=== PATIENT | female | born 1995 | race Caucasian/White ===

== ENCOUNTER 2017-10-09 22:47 | Emergency (ER) | payer MEDICAID ==
[2017-10-09] MEDS ORDERED: Lidocaine 1% 10 ML MDV INJECT ONE (23:23)
--- NOTE | 2017-10-09 23:23 | EDM.PDOC ---
ED HPI GENERAL MEDICAL PROBLEM - General Chief Complaint: Laceration Stated Complaint: CUT ON LIP Time Seen by Provider: 10/09/17 23:12 Source of Information: Reports: Patient, Family (boyfriend) History Limitations: Reports: Altered Mental Status, Intoxication (Appears to be under the influence of drugs or alcohol.) - History of Present Illness INITIAL COMMENTS - FREE TEXT/NARRATIVE: 22-year-old female presents the ED stating that she tripped and fell and struck the corner of a coffee table. This is resulted in 2 lacerations to her right face involving the Ellis border of her right lower lip and lateral chin area. She's not sure when she had her last tetanus toxoid. S complains of a sore jaw but no malocclusion. No dental injuries. No neck pain. he denies any loss of consciousness. She appears to be under the influence of drugs or alcohol. Lacerations are deep enough to require sutures. Onset: Today Onset Date: 10/09/17 Onset Time: 22:00 Duration: Minutes: Location: Reports: Face (Right lower chin and right lower lip.) Quality: Reports: Ache Severity: Moderate Improves with: Reports: None Worsens with: Reports: Other Context: Denies: Activity, Exercise, Lifting, Sick Contact, Trauma, Other Associated Symptoms: Reports: Malaise. 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 [No Known Home Meds] 10/09/17 [History] Past Medical History Neurological History: Reports: Migraines Social & Family History - Tobacco Use Smoking Status *Q: Light Tobacco Smoker Years of Tobacco use: 2 Packs/Tins Daily: 1 - Caffeine Use Caffeine Use: Reports: Coffee - Recreational Drug Use Recreational Drug Use: No ED ROS GENERAL - Review of Systems Review Of Systems: See Below Constitutional: Reports: No Symptoms HEENT: Reports: No Symptoms Respiratory: Reports: No Symptoms Cardiovascular: Reports: No Symptoms Endocrine: Reports: No Symptoms GI/Abdominal: Reports: No Symptoms : Reports: No Symptoms Musculoskeletal: Reports: No Symptoms Skin: Reports: No Symptoms Neurological: Reports: No Symptoms Psychiatric: Reports: No Symptoms Hematologic/Lymphatic: Reports: No Symptoms Immunologic: Reports: No Symptoms ED EXAM, SKIN/RASH Exam: See Below Exam Limited By: Altered Mental Status (Appears to be intoxicated by drugs or alcohol.) General Appearance: No Apparent Distress, Lethargic Eye Exam: Bilateral Eye: Normal Inspection Nose: Normal Inspection Throat/Mouth: Normal Inspection, Normal Lips, Normal Teeth, Normal Oropharynx, Other (No dental injuries no bite polo to her tongue.) Head: Other (Lacerations to her right lower lip involving the inner lower lip as well. There are 2 lacerations to her right face one involving the Ana border of her right lip which is about 2 cm in length and a 1 cm laceration inferior to this over the lateral chin.) Neck: Normal Inspection, Supple, Non-Tender ( Require suture repair.), Full Range of Motion. No: Lymphadenopathy (L), Lymphadenopathy (R) Respiratory/Chest: No Respiratory Distress, Lungs Clear, Normal Breath Sounds, No Accessory Muscle Use Cardiovascular: Normal Peripheral Pulses, Regular Rate, Rhythm, No Edema, No Gallop, No Murmur Extremities: Normal Inspection, Normal Range of Motion, Non-Tender, No Pedal Edema, Normal Capillary Refill Neurological: Other (Lethargic. She does answer appropriately but she appears to be intoxicated.) Skin: Warm, Dry, Intact, Normal Color Location, Skin: Face (Lacerations to her right lower lip involving the Ellis border and base 1 cm laceration inferior to this involving her right lateral chin below the lip.) ED SKIN PROCEDURES - Laceration/Wound Repair Right Anterior Face Lac/Wound length In cm: 2.0 (Laceration right lower lip involving the Ellis border 2 cm in length.) Appearance: Subcutaneous, Clean Distal NVT: Neuro & Vascular Intact Anesthetic Type: Local Local Anesthesia - Lidocaine (Xylocaine): 1% Plain Local Anesthetic Volume: 1cc Skin Prep: Saline # of Sutures: 5 Suture Type: Interrupted, Simple Suture Size: other (5-0) Course - Vital Signs Last Recorded V/S: Last Vital Signs Temp 36.5 C 08/17/18 22:54 Pulse 74 10/09/17 22:54 Resp 18 10/09/17 22:54 BP 112/86 10/09/17 22:54 Pulse Ox 98 10/09/17 22:54 - Orders/Labs/Meds Orders: Active Orders 24 hr Category Date Time Status Vaccines to be Administered [RC] PER UNIT ROUTINE Care 10/09/17 23:24 Active Meds: Medications Discontinued Medications Generic Name Dose Route Start Last Admin Trade Name Javier PRN Reason Stop Dose Admin Diphtheria/Tetanus/Acell Pertussis 0.5 ml 10/09/17 23:24 10/09/17 23:47 Adacel IM 10/09/17 23:25 0.5 ml .ONCE ONE Administration Lidocaine HCl 10 ml 10/09/17 23:23 10/09/17 23:45 Xylocaine 1% INJECT 10/09/17 23:24 10 ml ONETIME ONE Administration - Radiology Interpretation Free Text/Narrative:: 22-year-old female who appears to be intoxicated presents to the ED indicating that she tripped and fell and struck the corner of a coffee table. This is resulted and contusions lacerations to her right carlene-face involving the Ellis border of her right lower lip and laceration to the inner mucosal lip that will not require suture. The outer laceration involving the vermilion border will require suture repair is partially 2 cm in length. There is a second 1 cm laceration inferior and lateral to the initial wound involving the lateral chin. Both wounds will require suture repair. - Re-Assessments/Exams Free Text/Narrative Re-Assessment/Exam: 10/10/17 00:02 Tdap has been updated. Lacerations were anesthetized with 1% lidocaine and sutured under local anesthetic. The superior laceration which involves the vermilion border of her lip and is 2 cm in length was sutured using 5-0 Vicryl suture. These may followed unknown but may be removed in 7 days time otherwise. The inferior chin laceration which is only 1 cm were sutured 2 with 5-0 nylon. The wounds daily with soap and water and apply topical antibiotic such as bacitracin or Polysporin. Departure - Departure Time of Disposition: 00:01 Disposition: Home, Self-Care 01 Condition: Fair Clinical Impression: Complex laceration of face Qualifiers: Encounter type: initial encounter Qualified Code(s): S01.91XA - Laceration without foreign body of unspecified part of head, initial encounter - Discharge Information *PRESCRIPTION DRUG MONITORING PROGRAM REVIEWED*: Not Applicable *COPY OF PRESCRIPTION DRUG MONITORING REPORT IN PATIENT SAMAN: Not Applicable Instructions: Laceration Care, Adult, [id number] Referrals: PCP,None [Primary Care Provider] - Forms: ED Department Discharge Additional Instructions: Evaluation the emergent tonight in regards to a fall with resultant blunt force trauma to your right lower lip. This is resulted in 2 lacerations to your right face one involves the Ellis border of your right lower lip the second one is on the lateral chin. There is a laceration on the inner aspect of your right lip that will not require suture repair. No apparent dental or tongue injury. That you likely jammed up her right temporomandibular joint from the fall. This will cause jaw pain for the next 7-10 days. Try and keep her diet fairly soft without any guarding or anything this hard to chew for the next 10 days. Motrin 600 mg every 6 hours needed for pain relief. Wounds were cleansed and sutured under local anesthetic. Treatment is to daily cleanse the wounds with soap and water. Showering is okay. Then apply topical antibiotic such as bacitracin or Polysporin to the wounds once daily usually at bedtime. Sutures will need to be removed in 7 days time. Please make a follow-up appointment with her personal physician in 7 days time. - My Orders Last 24 Hours: My Active Orders 10/09/17 23:24 Vaccines to be Administered [RC] PER UNIT ROUTINE - Assessment/Plan Last 24 Hours: My Active Orders 10/09/17 23:24 Vaccines to be Administered [RC] PER UNIT ROUTINE ED LACERATION PROCEDURES - Laceration/Wound Repair Right Anterior Face Lac/wound length in cm: 1.0 (Right superior chin) Appearance: Subcutaneous, Clean Distal NVT: Neuro & Vascular Intact Anesthetic Type: Local Local Anesthetic Volume: 1cc Skin Prep: Saline Closed with: Sutures Suture Size: other (5-0) # of Sutures: 2 Suture Type: Nylon, Interrupted, Simple
[2017-10-09] MEDS ORDERED: Diphtheria,Pertussis(Acell),Tetanus Vaccine 0.5 ML SDV IM ONE (23:24)
[2017-10-10] MEDS ORDERED: Acetaminophen/oxyCODONE 325-5 MG Tab PO ONE (00:07)
[2017-10-10] MEDS ORDERED: Ibuprofen 600 MG Tab PO ONE ×2 (00:07)
[2017-10-10] MEDS ORDERED: Prochlorperazine 5 MG Tab PO ONE (00:07)
== END 2017-10-10 00:21 | disposition home or self-care (01) ==
LOC: JD.ED 22:47
DX: S01.511A Laceration without foreign body of lip, initial encounter (principal); S01.81XA Laceration without foreign body of other part of head, initial encounter; F17.210 Nicotine dependence, cigarettes, uncomplicated; Z23 Encounter for immunization; W01.198A Fall on same level from slipping, tripping and stumbling with subsequent striking against other object, initial encounter
CPT/HCPCS: 12013; 90471; 90715; 99283; A9270; Q0164; 12011

== ENCOUNTER 2017-10-20 23:11 | Emergency (ER) | payer MEDICAID ==
[2017-10-20] MEDS ORDERED: Sodium Chloride 0.9% 10 ML Syringe FLUSH PRN (23:48)
[2017-10-20] MEDS ORDERED: Sodium Chloride 0.9% 1,000 ML IV ONE (23:49)
[2017-10-20] MEDS ORDERED: Ketorolac 60 MG/2 ML SDV IVPUSH ONE (23:50)
[2017-10-21 02:05] LABS: N. GONORRHOEAE BY PCR NOT DETECTED
[2017-10-21 02:11] LABS: C. TRACHOMATIS BY PCR DETECTED
[2017-10-21] MEDS ORDERED: Ondansetron 4 MG/2 ML SDV IVPUSH ONE (02:43)
[2017-10-21] MEDS ORDERED: Azithromycin 250 MG Tab PO ONE (02:44)
[2017-10-21] MEDS ORDERED: cefTRIAXone 1,000 MG VIAL IM ONE (02:44)
[2017-10-21] MEDS ORDERED: cefTRIAXone 1 GM Vial IM ONE (02:46)
--- NOTE | 2017-10-21 02:49 | EDM.PDOC ---
ED HPI GENERAL MEDICAL PROBLEM - General Chief Complaint: Flank Pain Stated Complaint: RIGHT FLANK PAIN Time Seen by Provider: 10/20/17 23:42 Source of Information: Reports: Patient History Limitations: Reports: No Limitations Right Flank Pain Score (Numeric/FACES): 8 - Related Data Allergies Allergy/AdvReac Type Severity Reaction Status Date / Time No Known Allergies Allergy Verified 10/20/17 23:18 Home Meds: Home Meds . [No Known Home Meds] 10/09/17 [History] Past Medical History - Past Health History Medical/Surgical History: Denies Medical/Surgical History Neurological History: Reports: Migraines Social & Family History - Tobacco Use Smoking Status *Q: Current Every Day Smoker Years of Tobacco use: 2 Packs/Tins Daily: 0.1 - Caffeine Use Caffeine Use: Reports: Coffee - Recreational Drug Use Recreational Drug Use: No ED ROS GENERAL - Review of Systems Review Of Systems: See Below ED EXAM, RENAL/ - Physical Exam Exam: See Below Course - Vital Signs Last Recorded V/S: Last Vital Signs Temp 37.3 C 10/20/17 23:19 Pulse 78 10/20/17 23:19 Resp 20 10/20/17 23:19 BP 135/111 H 10/20/17 23:19 Pulse Ox 99 10/20/17 23:19 - Orders/Labs/Meds Orders: Active Orders 24 hr Category Date Time Status Peripheral IV Care [RC] . DIRECTED Care 10/20/17 23:49 Active Abdomen Pelvis wo Cont [CT] Stat Exams 10/21/17 00:47 Taken HCG QUALITATIVE,URINE [URCHEM] Stat Lab 10/21/17 00:07 Ordered UA W/MICROSCOPIC [URIN] Stat Lab 10/21/17 00:07 Ordered Sodium Chloride 0.9% [Saline Flush] Med 10/20/17 23:48 Active 10 ml FLUSH ASDIRECTED PRN Peripheral IV Insertion Adult [OM.PC] Routine Oth 10/20/17 23:48 Ordered Medication Orders Sodium Chloride (Saline Flush) 10 ml FLUSH ASDIRECTED PRN PRN Reason: Keep Vein Open Last Admin: 10/21/17 00:03 Dose: 10 ml Labs: Laboratory Tests 10/20/17 10/20/17 10/21/17 Range/Units 23:56 23:56 00:07 WBC 13.35 H (3.98-10.04) K/mm3 RBC 4.98 (3.98-5.22) M/mm3 Hgb 14.4 (11.2-15.7) gm/L Hct 43.4 (34.1-44.9) % MCV 87.1 (79.4-94.8) fl MCH 28.9 (25.6-32.2) pg MCHC 33.2 (32.2-35.5) g/dl RDW Std Deviation 41.9 (36.4-46.3) fL Plt Count 338 (182-369) K/mm3 MPV 9.5 (9.4-12.3) fl Neut % (Auto) 58.5 (34.0-71.1) % Lymph % (Auto) 29.4 (19.3-51.7) % [place] % (Auto) 8.8 (4.7-12.5) % Eos % (Auto) 2.2 (0.7-5.8) Baso % (Auto) 0.8 (0.1-1.2) % Neut # (Auto) 7.81 H (1.56-6.13) K/mm3 Lymph # (Auto) 3.93 H (1.18-3.74) K/mm3 [place] # (Auto) 1.17 H (0.24-0.36) K/mm3 Eos # (Auto) 0.29 (0.04-0.36) K/mm3 Baso # (Auto) 0.11 H (0.01-0.08) K/mm3 Sodium 141 (136-145) mEq/L Potassium 3.6 (3.5-5.1) mEq/L Chloride 104 (98-107) mEq/L Carbon Dioxide 28 (21-32) mEq/L Anion Gap 12.6 (5-15) BUN 13 (7-18) mg/dL Creatinine 1.0 (0.55-1.02) mg/dL Est Cr Clr Drug Dosing 77.49 mL/min Estimated GFR (MDRD) > 60 (>60) mL/min BUN/Creatinine Ratio 13.0 L (14-18) Glucose 84 (74-106) mg/dL Calcium 9.3 (8.5-10.1) mg/dL Total Bilirubin 0.3 (0.2-1.0) mg/dL AST 11 L (15-37) U/L ALT 15 (14-59) U/L Alkaline Phosphatase 66 (46-116) U/L Total Protein 8.0 (6.4-8.2) g/dl Albumin 3.6 (3.4-5.0) g/dl Globulin 4.4 gm/dL Albumin/Globulin Ratio 0.8 L (1-2) Urine Color Yellow (Yellow) Urine Appearance Clear (Clear) Urine pH 6.5 (5.0-8.0) Ur Specific [place] 1.020 (1.005-1.030) Urine Protein 1+ H (Negative) Urine Glucose (UA) Negative (Negative) Urine Ketones Negative (Negative) Urine Occult Blood 2+ H (Negative) Urine Nitrite Negative (Negative) Urine Bilirubin Negative (Negative) Urine Urobilinogen 0.2 (0.2-1.0) Ur Leukocyte Esterase 2+ H (Negative) Urine RBC 5-10 H (0-5) /hpf Urine WBC 20-30 H (0-5) /hpf Ur Epithelial Cells 0-5 (0-5) /hpf Urine Bacteria Few (FEW) /hpf Urine Mucus Not seen (FEW) /hpf Urine HCG, Qual (NEGATIVE) C trachomatis DNA (PCR) N gonorrhoeae DNA (PCR) 10/21/17 10/21/17 Range/Units 00:07 00:07 WBC (3.98-10.04) K/mm3 RBC (3.98-5.22) M/mm3 Hgb (11.2-15.7) gm/L Hct (34.1-44.9) % MCV (79.4-94.8) fl MCH (25.6-32.2) pg MCHC (32.2-35.5) g/dl RDW Std Deviation (36.4-46.3) fL Plt Count (182-369) K/mm3 MPV (9.4-12.3) fl Neut % (Auto) (34.0-71.1) % Lymph % (Auto) (19.3-51.7) % [place] % (Auto) (4.7-12.5) % Eos % (Auto) (0.7-5.8) Baso % (Auto) (0.1-1.2) % Neut # (Auto) (1.56-6.13) K/mm3 Lymph # (Auto) (1.18-3.74) K/mm3 [place] # (Auto) (0.24-0.36) K/mm3 Eos # (Auto) (0.04-0.36) K/mm3 Baso # (Auto) (0.01-0.08) K/mm3 Sodium (136-145) mEq/L Potassium (3.5-5.1) mEq/L Chloride (98-107) mEq/L Carbon Dioxide (21-32) mEq/L Anion Gap (5-15) BUN (7-18) mg/dL Creatinine (0.55-1.02) mg/dL Est Cr Clr Drug Dosing mL/min Estimated GFR (MDRD) (>60) mL/min BUN/Creatinine Ratio (14-18) Glucose (74-106) mg/dL Calcium (8.5-10.1) mg/dL Total Bilirubin (0.2-1.0) mg/dL AST (15-37) U/L ALT (14-59) U/L Alkaline Phosphatase (46-116) U/L Total Protein (6.4-8.2) g/dl Albumin (3.4-5.0) g/dl Globulin gm/dL Albumin/Globulin Ratio (1-2) Urine Color (Yellow) Urine Appearance (Clear) Urine pH (5.0-8.0) Ur Specific [place] (1.005-1.030) Urine Protein (Negative) Urine Glucose (UA) (Negative) Urine Ketones (Negative) Urine Occult Blood (Negative) Urine Nitrite (Negative) Urine Bilirubin (Negative) Urine Urobilinogen (0.2-1.0) Ur Leukocyte Esterase (Negative) Urine RBC (0-5) /hpf Urine WBC (0-5) /hpf Ur Epithelial Cells (0-5) /hpf Urine Bacteria (FEW) /hpf Urine Mucus (FEW) /hpf Urine HCG, Qual Negative (NEGATIVE) C trachomatis DNA (PCR) Detected H N gonorrhoeae DNA (PCR) Not detected Meds: Medications Generic Name Dose Route Start Last Admin Trade Name Freq PRN Reason Stop Dose Admin Sodium Chloride 10 ml 10/20/17 23:48 10/21/17 00:03 Saline Flush FLUSH 10 ml ASDIRECTED PRN Administration Keep Vein Open Discontinued Medications Generic Name Dose Route Start Last Admin Trade Name Freq PRN Reason Stop Dose Admin Azithromycin 1,000 mg 10/21/17 02:44 Zithromax PO 10/21/17 02:45 ONETIME ONE Ceftriaxone Sodium 1,000 mg 10/21/17 02:44 Rocephin IM 10/21/17 02:45 ONETIME ONE Sodium Chloride 1,000 mls @ 999 mls/hr 10/20/17 23:49 10/21/17 00:01 Normal Saline IV 10/21/17 00:49 999 mls/hr ONETIME ONE Administration Ketorolac Tromethamine 60 mg 10/20/17 23:50 10/21/17 00:01 Toradol IVPUSH 10/20/17 23:51 60 mg ONETIME ONE Administration Ondansetron HCl 4 mg 10/21/17 02:43 Zofran IVPUSH 10/21/17 02:44 ONETIME ONE Departure - Departure Time of Disposition: 02:46 Disposition: Home, Self-Care 01 Condition: Good Clinical Impression: UTI, Urinary tract infectious disease, Chlamydia infection - Discharge Information *PRESCRIPTION DRUG MONITORING PROGRAM REVIEWED*: No *COPY OF PRESCRIPTION DRUG MONITORING REPORT IN PATIENT SAMAN: No Instructions: Antibiotic Medicine, Adult, Urinary Tract Infection, Adult Referrals: PCP,None [Primary Care Provider] - Additional Instructions: Take plenty of fluids. Abstain from intercourse for at least 1 week. You should establish a provider for your long-term health needs. Call the clinic to arrange this. - My Orders Last 24 Hours: My Active Orders 10/20/17 23:48 Sodium Chloride 0.9% [Saline Flush] 10 ml FLUSH ASDIRECTED PRN Peripheral IV Insertion Adult [OM.PC] Routine 10/20/17 23:49 Peripheral IV Care [RC] . DIRECTED 10/21/17 00:07 HCG QUALITATIVE,URINE [URCHEM] Stat UA W/MICROSCOPIC [URIN] Stat 10/21/17 00:47 Abdomen Pelvis wo Cont [CT] Stat - Assessment/Plan Last 24 Hours: My Active Orders 10/20/17 23:48 Sodium Chloride 0.9% [Saline Flush] 10 ml FLUSH ASDIRECTED PRN Peripheral IV Insertion Adult [OM.PC] Routine 10/20/17 23:49 Peripheral IV Care [RC] . DIRECTED 10/21/17 00:07 HCG QUALITATIVE,URINE [URCHEM] Stat UA W/MICROSCOPIC [URIN] Stat 10/21/17 00:47 Abdomen Pelvis wo Cont [CT] Stat
--- NOTE | 2017-10-21 04:10 | ER ---
REASON FOR EMERGENCY ROOM VISIT: Right-sided flank pain. HISTORY OF PRESENT ILLNESS: This 22-year-old woman developed pain in the right mid back region which migrated over to the right flank today. The pain worsened throughout the day. She has not had any irritative voiding symptoms, but last week she had flu-like symptoms with fever, diarrhea, myalgias, and a headache. These resolved prior to the weekend and then her symptoms yesterday began. She has not had any irritative voiding symptoms or hematuria. She does have a history of chlamydia in the past. Last normal menstrual period was approximately 3 weeks ago. She is sexually active and is not using any control. PAST MEDICAL HISTORY: See electronic medical record. She does have a history of migraines. She is a 2, para 0 (2 miscarriages). PAST SURGICAL HISTORY: She has had no previous operations. CURRENT MEDICATIONS: She is on no medications. ALLERGIES: Denies any allergies. FAMILY HISTORY: Maybe significant in that her mother has a history of kidney stones. REVIEW OF SYSTEMS: Pertinent positives and negatives as listed in the HPI. PHYSICAL EXAMINATION: GENERAL: She is curled up and having a moderate amount of pain. VITAL SIGNS: She is afebrile. Blood pressure 135/111, respiratory rate is 20, O2 saturations 99%, pulse rate is 78. HEENT: Head is normocephalic. No conjunctivitis is noted. Oropharynx is normal. NECK: Supple. No adenopathy. CHEST: Clear to auscultation with good air exchange. CARDIAC: Regular rate without murmur. ABDOMEN: She does have some mild tenderness in the right flank area as well as the right lower quadrant region. She even has mild to moderate tenderness to percussion over the right costovertebral angle area. There is no percussion tenderness or rebound. No palpable masses were noted. LABORATORY DATA: Her WBCs are elevated at 13.35 times 10 to the third. She does not have any anemia. Her CMP is normal. Her urinalysis is abnormal with 2+ occult blood, 2+ leukocyte esterase, 5 to 10 rbc's per high-power field, 20 to 30 wbc's per high- power field, and a few bacteria. A probe was done for GC and chlamydia and it was positive for chlamydia. Urine test was negative (HCG qualitative). FURTHER EMERGENCY ROOM COURSE: An IV was started. She was given 1 L of IV normal saline. She received 60 mg of Toradol IV x1. A CT of the abdomen and pelvis was performed, and she did not have any evidence of nephrolithiasis or ureteral calculus. However, she did have a small amount of fluid in the cul-de-sac, possibly indicating a recent ovarian cyst rupture. No other abnormalities were noted. IMPRESSION: 1. Cystitis. 2. Chlamydia. 3. No evidence of renal calculi. PLAN: Her boyfriend accompanied her and seeing as though they are sexually active, I decided to treat her for chlamydia as well as her boyfriend. In addition to this, I am going to go ahead and treat her for a UTI as well. There is no way of knowing whether or not she has chlamydia and a bacterial UTI, so therefore I will treat her for both. Her boyfriend (Tl) was given a prescription for doxycycline 100 mg p.o. b.i.d. x7 days. He was urged to take this to completion. He denies any allergies to medication. The patient was given 1 g of Rocephin IM as well as Zofran 4 mg IV prior to giving her 1000 mg of azithromycin p.o. In addition, she will be given ciprofloxacin 500 mg p.o. b.i.d. x1 week. I am giving her a bit longer dose of Cipro as well as the Rocephin because of her physical findings and there is no way of knowing whether she has a mild pyelonephritis as well. She certainly does not have fevers and so I feel comfortable treating this as an outpatient. The importance of abstaining from sexual intercourse for at least 1 week was emphasized to them, and they understand and agree with this. I emphasized to her the importance of establishing a primary care provider for her routine healthcare needs and for followup purposes. Should she have any problems such as fever or increasing abdominal pain, etc., she should give us a call or return for evaluation. All questions were answered. They understand and agree with this plan. In addition to this, I want to make an addendum. She was also given tramadol 50 mg, dispensed #10, 1 p.o. q.4 hours p.r.n. pain with 0 refills. MMODAL /[id number]
--- NOTE | 2017-10-21 15:05 | CT ---
CT abdomen and pelvis Technique: Multiple axial sections were obtained from above the dome of the diaphragm inferiorly through the pubic symphysis. Intravenous and oral contrast not utilized. Study has been performed as a ureteral stone protocol. Findings: Visualized lung bases show nothing acute. Noncontrast appearance of the liver appears within normal limits. Spleen appears within normal limits. Adrenal glands show no nodule. Kidneys show no abnormal calcifications. No ureteral dilatation or ureteral stone is seen. No bladder calculi are noted. Aorta shows no aneurysmal dilatation. No retroperitoneal adenopathy or mesenteric abnormalities are seen. No pelvic mass or adenopathy is seen. Small amount of free fluid is noted within the cul-de-sac. Appendix is felt to be partially visualized with no findings of appendicitis. No free fluid or inflammatory change is seen. Bone window settings were reviewed which appear within normal limits for the patient's age. Impression: 1. No renal calculi, ureteral dilatation or ureteral stone is seen. 2. Small amount of fluid within the cul-de-sac believed to be physiologic. 3. Nothing acute is appreciated on noncontrast CT study of the abdomen and pelvis performed as a ureteral stone protocol. Diagnostic code #2 Agree with preliminary report issued by [facility] (report finalized on 10/21/17, 3:00 AM Central Time)
== END 2017-10-21 03:08 | disposition home or self-care (01) ==
LOC: JD.ED 23:11
DX: A56.01 Chlamydial cystitis and urethritis (principal); F17.210 Nicotine dependence, cigarettes, uncomplicated
CPT/HCPCS: 36415; 74176; 80053; 81001; 81025; 85025; 87086; 87491; 87591; 96361; 96372; 96374; 96375; 99284; A9270; J0696; J1885; J2405; J7040; J7050; 87088; 87186; 99283

== ENCOUNTER 2019-02-04 11:59 | Emergency (ER) | payer SELFPAY ==
[2019-02-04] MEDS ORDERED: Ondansetron 4 MG/2 ML SDV IVPUSH ONE (12:52)
[2019-02-04] MEDS ORDERED: diphenhydrAMINE 50 MG/ML SDV IVPUSH ONE (12:52)
[2019-02-04] MEDS ORDERED: Lactated Ringers 1,000 ML IV ONE (12:52)
--- NOTE | 2019-02-04 12:52 | EDM.PDOC ---
ED HPI GENERAL MEDICAL PROBLEM - General Chief Complaint: Headache Stated Complaint: LT SIDE NUMBNESS AND MIGRAINE Time Seen by Provider: 02/04/19 12:43 - History of Present Illness INITIAL COMMENTS - FREE TEXT/NARRATIVE: 23-year-old female presents emergency room with a migraine headache. Patient has history of migraine headaches. Sometimes she has numbness on one side or the other sometimes she has vision loss in one eye. It's been a long time since she had the numbness.. She's got significant photophobia and some nausea at this time. This headache started early this morning it started with loss of vision in one eye and has typically how they start. Head Pain Score (Numeric/FACES): 10 - Related Data Allergies Allergy/AdvReac Type Severity Reaction Status Date / Time No Known Allergies Allergy Verified 02/04/19 12:08 Home Meds: Home Meds . [No Known Home Meds] 02/04/19 [History] Past Medical History - Past Health History Medical/Surgical History: Denies Medical/Surgical History Neurological History: Reports: Migraines Psychiatric History: Reports: Anxiety Social & Family History - Tobacco Use Smoking Status *Q: Never Smoker - Caffeine Use Caffeine Use: Reports: Coffee ED ROS GENERAL - Review of Systems Review Of Systems: See Below Constitutional: Reports: No Symptoms HEENT: Reports: Other (Transient vision loss associated with her migraines) Respiratory: Reports: No Symptoms Cardiovascular: Reports: No Symptoms Endocrine: Reports: No Symptoms GI/Abdominal: Reports: No Symptoms - Physical Exam Exam: See Below Exam Limited By: No Limitations General Appearance: Alert, No Apparent Distress Eye Exam: Bilateral Eye: EOMI, Normal Inspection, PERRL Ears: Normal External Exam, Normal Canal, Hearing Grossly Normal, Normal TMs Nose: Normal Inspection, Normal Mucosa, No Blood Throat/Mouth: Normal Inspection, Normal Lips, Normal Teeth, Normal Gums, Normal Oropharynx Head Exam: Atraumatic, Normocephalic Neck: Normal Inspection, Supple, Non-Tender, Full Range of Motion. No: Lymphadenopathy (L), Lymphadenopathy (R) Respiratory/Chest: No Respiratory Distress, Lungs Clear, Normal Breath Sounds Cardiovascular: Normal Peripheral Pulses, Regular Rate, Rhythm, No Edema GI/Abdominal: Normal Bowel Sounds, Soft, Non-Tender Neuro Exam (Abbreviated): Other (Cranial nerves II through XII grossly intact all muscle groups in upper and lower extremities are equal and appropriate bilaterally deep tendon reflexes are equal and appropriate at the patella and and brachial radialis bilaterally cerebellar testing is entirely within normal limits) Course - Vital Signs Last Recorded V/S: Last Vital Signs Temp 36.4 C 02/04/19 12:08 Pulse 82 02/04/19 12:08 Resp 18 02/04/19 12:08 BP 140/92 H 02/04/19 12:08 Pulse Ox 100 02/04/19 12:08 - Orders/Labs/Meds Meds: Medications Discontinued Medications Generic Name Dose Route Start Last Admin Trade Name Javier PRN Reason Stop Dose Admin Diphenhydramine HCl 50 mg 02/04/19 12:52 02/04/19 13:28 Benadryl IVPUSH 02/04/19 12:53 50 mg ONETIME ONE Administration Lactated Ringer's 1,000 mls @ 999 mls/hr 02/04/19 12:52 02/04/19 13:27 Ringers, Lactated IV 02/04/19 13:52 999 mls/hr .BOLUS ONE Administration Ketorolac Tromethamine 15 mg 02/04/19 14:36 02/04/19 14:51 Toradol IVPUSH 02/04/19 14:37 15 mg ONETIME ONE Administration Ondansetron HCl 4 mg 02/04/19 12:52 02/04/19 13:28 Zofran IVPUSH 02/04/19 12:53 4 mg ONETIME ONE Administration - Re-Assessments/Exams Free Text/Narrative Re-Assessment/Exam: 02/04/19 14:36 About 10 minutes after the patient received meds she was having some significant improvement nausea was gone and headache is starting to subside she was doing really well however the pain started to return a little bit on the right frontal area. Will give her 15 mg of Toradol anticipate discharge if this helps her. 02/04/19 15:11 The Toradol really helped out she is doing really good we'll discharge home to rest Departure - Departure Time of Disposition: 14:37 Disposition: Home, Self-Care 01 Clinical Impression: H/O atypical migraine, Atypical migraine - Discharge Information Referrals: PCP,None [Primary Care Provider] - Forms: ED Department Discharge Additional Instructions: Return to the emergency room with any questions problems or worsening symptoms. Go straight home and get some sleep. Follow-up at the Hospital clinic to establish care [phone]. Sepsis Event Note - Evaluation Sepsis Screening Result: No Definite Risk - Focused Exam Vital Signs: Vital Signs Temp Pulse Resp BP Pulse Ox 02/04/19 12:08 36.4 C 82 18 140/92 H 100 Date Exam was Performed: 02/04/19 Time Exam was Performed: 15:11
[2019-02-04] MEDS ORDERED: Ketorolac 15 MG/ML SDV IVPUSH ONE (14:36)
== END 2019-02-04 15:18 | disposition home or self-care (01) ==
LOC: JD.ED 11:59
DX: G43.909 Migraine, unspecified, not intractable, without status migrainosus (principal)
CPT/HCPCS: 96361; 96374; 96375; 99283; J1200; J1885; J2405; J7120

== ENCOUNTER 2019-05-18 19:55 | Emergency (ER) | payer OTHER ==
--- NOTE | 2019-05-18 20:20 | EDM.PDOC ---
ED HPI GENERAL MEDICAL PROBLEM - General Chief Complaint: Respiratory Problem Stated Complaint: 20 WKS /CHECK MOVEMENT/COUGH Time Seen by Provider: 05/18/19 20:19 - History of Present Illness INITIAL COMMENTS - FREE TEXT/NARRATIVE: 24-year-old female is emergency room with a fever cough congestion and sore throat. She is also 20 weeks . Patient was seen here a week ago and she continues to get worse she is running fevers as high as 101. The baby has been active but this is been intermittent the patient cannot recall if the baby has been active today. She is a 3 para 0 2 miscarriages has a cough and a sore throat she is afebrile in the department at this time. She has been fatigued has had some chills has a significant sore throat and cough mostly nonproductive. Headache Pain Score (Numeric/FACES): 3 - Related Data Allergies Allergy/AdvReac Type Severity Reaction Status Date / Time No Known Allergies Allergy Verified 02/04/19 12:08 Home Meds: Home Meds Pnv No.95/Ferrous Fum/Folic AC [ Caplet] 1 tab PO DAILY 05/18/19 [ History] Past Medical History - Past Health History Medical/Surgical History: Denies Medical/Surgical History Neurological History: Reports: Migraines Psychiatric History: Reports: Anxiety, Depression - Past Surgical History Female Surgical History: Reports: D&C Other Female Surgeries/Procedures: 2 miscarriages Social & Family History - Tobacco Use Smoking Status *Q: Current Some Day Smoker Years of Tobacco use: 10 Packs/Tins Daily: 0.2 - Caffeine Use Caffeine Use: Reports: Coffee, Soda, Tea - Recreational Drug Use Recreational Drug Use: No ED ROS GENERAL - Review of Systems Review Of Systems: See Below Constitutional: Reports: Fever, Chills, Fatigue HEENT: Reports: Throat Pain. Denies: Throat Swelling Respiratory: Reports: Cough. Denies: Shortness of Breath, Sputum Cardiovascular: Reports: No Symptoms GI/Abdominal: Reports: No Symptoms : Reports: No Symptoms Musculoskeletal: Reports: No Symptoms Skin: Reports: No Symptoms Neurological: Reports: No Symptoms Psychiatric: Reports: No Symptoms Hematologic/Lymphatic: Reports: No Symptoms Immunologic: Reports: No Symptoms ED EXAM, GENERAL - Physical Exam Exam: See Below Exam Limited By: No Limitations General Appearance: Alert, No Apparent Distress Eye Exam: Bilateral Eye: Normal Inspection Ears: Normal External Exam, Normal Canal, Hearing Grossly Normal, Normal TMs Nose: Normal Inspection, Normal Mucosa, No Blood Throat/Mouth: Normal Lips, Normal Teeth, Normal Gums, Other (Pharyngeal erythema ). No: Perioral Cyanosis Head: Atraumatic, Normocephalic Neck: Normal Inspection, Supple, Non-Tender, Full Range of Motion Respiratory/Chest: No Respiratory Distress, Lungs Clear, Normal Breath Sounds Cardiovascular: Regular Rate, Rhythm, No Edema, No Murmur GI/Abdominal: Normal Bowel Sounds, Soft, Non-Tender (Female) Exam: Fundal Height (Appropriate for gestational age heart tones 147 done by nursing) Back Exam: Normal Inspection. No: CVA Tenderness (L), CVA Tenderness (R) Extremities: Normal Inspection, No Pedal Edema Neurological: Alert, Oriented, Normal Cognition Psychiatric: Normal Affect, Normal Mood Skin Exam: Warm, Dry, Intact Lymphatic: No Adenopathy Course - Vital Signs Last Recorded V/S: Last Vital Signs Temp 37.0 C 05/18/19 20:03 Pulse 76 05/18/19 20:03 Resp 20 05/18/19 20:03 BP 116/86 05/18/19 20:03 Pulse Ox 98 05/18/19 20:03 - Orders/Labs/Meds Orders: Active Orders 24 hr Category Date Time Status CORONAVIRUS COVID-19 PCR PHL [MREF] Stat Lab 05/18/19 21:18 Ordered CULTURE STREP A CONFIRMATION [RM] Stat Lab 05/18/19 20:40 Results STREP SCRN A RAPID W CULT CONF [RM] Stat Lab 05/18/19 20:40 Results Isolation [COMM] Routine Oth 05/18/19 20:32 Ordered - Re-Assessments/Exams Free Text/Narrative Re-Assessment/Exam: 05/18/19 21:22 Screen is negative influenza screen is negative she has been tested for covid 19 will discharge at this time. Departure - Departure Time of Disposition: 21:23 Disposition: Home, Self-Care 01 Clinical Impression: Viral respiratory illness - Discharge Information Referrals: Lit Stratton MD [Primary Care Provider] - Forms: ED Department Discharge Additional Instructions: Return to the emergency room with any questions problems or worsening symptoms. Stay home, you have been tested for Covid 19. It takes a day or 2 for us to get the results of this, occasionally a little longer. Use Tylenol as needed for aches pains and fever. Push lots of fluids. Sepsis Event Note - Evaluation Sepsis Screening Result: No Definite Risk - Focused Exam Vital Signs: Vital Signs Temp Pulse Resp BP Pulse Ox 05/18/19 20:03 37.0 C 76 20 116/86 98 Date Exam was Performed: 05/18/19 Time Exam was Performed: 21:22 - My Orders Last 24 Hours: My Active Orders 05/18/19 20:32 Isolation [COMM] Routine 05/18/19 20:40 CULTURE STREP A CONFIRMATION [RM] Stat STREP SCRN A RAPID W CULT CONF [RM] Stat 05/18/19 21:18 CORONAVIRUS COVID-19 PCR PHL [MREF] Stat - Assessment/Plan Last 24 Hours: My Active Orders 05/18/19 20:32 Isolation [COMM] Routine 05/18/19 20:40 CULTURE STREP A CONFIRMATION [RM] Stat STREP SCRN A RAPID W CULT CONF [RM] Stat 05/18/19 21:18 CORONAVIRUS COVID-19 PCR PHL [MREF] Stat
== END 2019-05-18 21:36 | disposition home or self-care (01) ==
LOC: JD.ED 19:55
DX: O99.512 Diseases of the respiratory system complicating pregnancy, second trimester (principal); J06.9 Acute upper respiratory infection, unspecified; O99.332 Smoking (tobacco) complicating pregnancy, second trimester; F17.210 Nicotine dependence, cigarettes, uncomplicated; Z3A.20 20 weeks gestation of pregnancy
CPT/HCPCS: 87081; 87430; 87804; 99283; U0001

== ENCOUNTER 2019-10-17 09:34 | Inpatient (IN) | payer MEDICAID ==
[2019-10-17] MEDS ORDERED: Ondansetron 4 MG/2 ML SDV IVPUSH PRN (19:34)
[2019-10-17] MEDS ORDERED: Sodium Chloride 0.9% 10 ML Syringe FLUSH PRN (19:34)
[2019-10-17] MEDS ORDERED: Nalbuphine 10 MG/ML Syringe IVPUSH PRN (19:34)
[2019-10-17] MEDS ORDERED: Calcium Carbonate 500 MG Tab.Chew PO PRN (19:34)
[2019-10-17] MEDS ORDERED: Oxytocin/Lactated Ringers 10 UNIT/1,000 ML BAG IV SCH (19:45)
[2019-10-17] MEDS ORDERED: Misoprostol 25 MCG (1/4 of 100 MCG) Tab VAG ONE (20:00)
--- NOTE | 2019-10-17 20:06 | PCM.LDHP ---
L&D History of Present Illness - General Date of Service: 10/17/19 Admit Problem/Dx: Patient Status Order with Admit Dx/Problem 10/17/19 19:35 Patient Status [ADT] Routine Admission Diagnosis/Problem Admission Diagnosis/Problem Source of Information: Patient History Limitations: Reports: No Limitations - Related Data Allergies/Adverse Reactions: Allergies Allergy/AdvReac Type Severity Reaction Status Date / Time No Known Allergies Allergy Verified 10/17/19 19:13 Home Medications: Home Meds Pnv No.95/Ferrous Fum/Folic AC [ Caplet] 1 tab PO DAILY 05/18/19 [History] Ferrous Sulfate [Iron] 325 mg PO 10/17/19 [History] Past Medical History - Past Health History Medical/Surgical History: Denies Medical/Surgical History Neurological History: Reports: Migraines Psychiatric History: Reports: Anxiety, Depression - Past Surgical History Female Surgical History: Reports: D&C Other Female Surgeries/Procedures: 2 miscarriages Social & Family History - Caffeine Use Caffeine Use: Reports: Coffee, Soda, Tea H&P Review of Systems - Review of Systems: Review Of Systems: See Below L&D Exam - Exam Exam: See Below - Vital Signs Vital Signs: Last Vital Signs Temp 36.7 C 10/17/19 19:01 Pulse 84 10/17/19 19:01 Resp 16 10/17/19 19:01 BP 132/81 10/17/19 19:01 Pulse Ox 99 10/17/19 19:01 Weight: 81.556 kg Problem List Initiated/Reviewed/Updated: Yes Orders Last 24hrs: Active Orders 24 hr Category Date Time Status Patient Status [ADT] Routine ADT 10/17/19 19:35 Active Activity as Tolerated [RC] PFP Care 10/17/19 19:35 Active Communication Order [RC] ASDIRECTED Care 10/17/19 19:35 Active Heart Tones [RC] ASDIRECTED Care 10/17/19 19:37 Active Non Stress Test [RC] PER UNIT ROUTINE Care 10/17/19 19:35 Active Notify Provider [RC] PFP Care 10/17/19 19:35 Active Notify Provider [RC] PRN Care 10/17/19 19:35 Active Peripheral IV Care [RC] . DIRECTED Care 10/17/19 19:37 Active Vital Signs [RC] PER UNIT ROUTINE Care 10/17/19 19:35 Active Regular Diet [DIET] Diet 10/17/19 Dinner Active BLOOD BANK HOLD SPECIMEN [BBK] Stat Lab 10/17/19 19:34 Ordered CBC WITH AUTO DIFF [HEME] Stat Lab 10/17/19 19:34 Ordered CORONAVIRUS COVID-19 RAPID [MOLEC] Stat Lab 10/17/19 19:39 Ordered RAPID PLASMA REAGIN,RPR [CHEM] Routine Lab 10/17/19 19:35 Ordered Calcium Carbonate [Tums] Med 10/17/19 19:34 Active 1,000 mg PO Q2H PRN Lactated Ringers [Ringers, Lactated] 1,000 ml Med 10/17/19 19:45 Active IV ASDIRECTED Nalbuphine [Nubain] Med 10/17/19 19:34 Active 10 mg IVPUSH Q2H PRN Ondansetron [Zofran] Med 10/17/19 19:34 Active 4 mg IVPUSH Q4H PRN Oxytocin/Lactated Ringers [Pitocin in LR 10 Units/1,000 Med 10/17/19 19:45 Active ML] 10 unit in 1,000 ml IV .CONTINUOUS Sodium Chloride 0.9% [Saline Flush] Med 10/17/19 19:34 Active 10 ml FLUSH ASDIRECTED PRN miSOPROStoL [Cytotec] Med 10/17/19 20:00 Once 25 mcg VAG ONETIME ONE miSOPROStoL [Cytotec] Med 10/17/19 23:00 Active 50 mcg VAG Q3HR Electronic Heart Tones Ext w TOCO [WOMSER] Oth 10/17/19 19:35 Ordered Routine Electronic Heart Tones Internal [WOMSER] Per Unit Oth 10/17/19 19:35 Ordered Routine Peripheral IV Insertion Adult [OM.PC] Routine Oth 10/17/19 19:35 Ordered Resuscitation Status Routine Resus Stat 10/17/19 19:34 Ordered Medication Orders Calcium Carbonate/Glycine (Tums) 1,000 mg PO Q2H PRN PRN Reason: Indigestion Oxytocin/Lactated Ringer's (Pitocin In Lr 10 Units/1,000 Ml) 10 unit in 1,000 mls @ 500 mls/hr IV .CONTINUOUS TAO Lactated Ringer's (Ringers, Lactated) 1,000 mls @ 100 mls/hr IV ASDIRECTED TAO Misoprostol (Cytotec) 25 mcg VAG ONETIME ONE Stop: 10/17/19 20:01 Misoprostol (Cytotec) 50 mcg VAG Q3HR TAO Stop: 10/18/19 00:01 Nalbuphine HCl (Nubain) 10 mg IVPUSH Q2H PRN PRN Reason: Pain Ondansetron HCl (Zofran) 4 mg IVPUSH Q4H PRN PRN Reason: Nausea/Vomiting Sodium Chloride (Saline Flush) 10 ml FLUSH ASDIRECTED PRN PRN Reason: Keep Vein Open
[2019-10-17] MEDS ORDERED: fentaNYL 100 MCG/2 ML SDV EPIDUR PRN (21:09)
[2019-10-17] MEDS ORDERED: Bupivacaine/fentaNYL/NS 100 ML Bag EPIDUR PRN (21:09)
[2019-10-17] MEDS ORDERED: ePHEDrine 50 MG/ML SDV IVPUSH PRN (21:09)
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
[2019-10-17] MEDS: Misoprostol 25 MCG (1/4 of 100 MCG) Tab VAG SCH (23:47)
[2019-10-18] MEDS ORDERED: Misoprostol 25 MCG (1/4 of 100 MCG) Tab ONE (02:40)
[2019-10-18] MEDS: Misoprostol 25 MCG (1/4 of 100 MCG) Tab VAG SCH (02:43)
[2019-10-18] MEDS ORDERED: Oxytocin/Lactated Ringers 10 UNIT/1,000 ML BAG IV SCH (02:45)
[2019-10-18] MEDS: Lactated Ringers 1,000 ML IV SCH ×4 (04:05→16:07)
[2019-10-18] MEDS ORDERED: ePHEDrine 50 MG/ML SDV IVPUSH PRN (07:29)
[2019-10-18] MEDS ORDERED: fentaNYL 100 MCG/2 ML SDV EPIDUR PRN (07:29)
[2019-10-18] MEDS ORDERED: Ondansetron 4 MG/2 ML SDV IVPUSH PRN (07:29)
[2019-10-18] MEDS ORDERED: Phenylephrine 1 MG in Sodium Chloride 0.9% 10 ML IV SCH (07:30)
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
--- NOTE | 2019-10-18 09:06 | PCM.SN.2 ---
- Free Text/Narrative Note: Evaluation at approximately 0730 hrs. on 10/18/2019 shows patient herman process every 3 minutes. She reports them to be mild. She had 3 doses of Cytotec during the course of the night with first dose at 25 mcg and the following 2 doses 50 mcg each given at 3-hour intervals. Her cervix has thin somewhat to 85% effacement, still is only 1 cm dilated, vertex presentation, soft, mid position. Attempt was made to visualize the cervix and attempt placement of Barton catheter to facilitate cervical ripening with bulb inflation. This was unsuccessful due to the close nature of the cervix. heart tones were reassuring. Patient has significant back pain which is chronic in nature. She does not appear to tolerate pain very well. She is resistant to pain control at this time including Nubain or epidural. Assessment: 40-5/7-week intrauterine , induction of labor going very slowly. Plan: 1. Pitocin to be continued. Will assess the cervix at a later time and see whether placement of catheter is possible. 2. Intermittent monitoring. 3. Pain control per patient desire. She is aware of what is available for her.
[2019-10-18] MEDS ORDERED: Acetaminophen 325 MG Tab PO ONE (13:04)
[2019-10-18] MEDS: Bupivacaine/fentaNYL/NS 100 ML Bag EPIDUR SCH ×2 (13:42→21:47)
[2019-10-18] MEDS: diphenhydrAMINE 50 MG/ML SDV IVPUSH PRN ×2 (16:04→22:24)
[2019-10-18] MEDS ORDERED: Oxytocin/Lactated Ringers 20 UNIT/1,000 ML BAG IV SCH (19:15)
--- NOTE | 2019-10-18 20:43 | PCM.SN.2 ---
- Free Text/Narrative Note: Barton catheter in bulb previously inserted has now fallen out and patient has achieved 4 cm dilation, 90% effacement, -2 station, mid position and soft consistency. Artificial rupture membranes undertaken with resultant clear amniotic fluid. Intrauterine pressure catheter is without problems. Uterine contraction pattern is less than optimal with contractions every 2 to 3 minutes but with peak flow contractions in the 45 to 50 mmHg range. heart tones reassuring. Placed for labor analgesia. Barton catheter placed. SCDs placed Assessment: 1. Slow but definite progress in labor. 2. Epidural has been placed and is working well. Plan: 1. Continue Pitocin induction of labor 2. Monitor contractions closely 3. Epidural placed and working well 4. Barton catheter in place sequential compression stockings on.
[2019-10-18] MEDS: Acetaminophen 325 MG Tab PO PRN (22:24)
[2019-10-19] MEDS ORDERED: Bupivacaine 0.25% 10 ML SDV ONE (04:00)
[2019-10-19] MEDS: Lactated Ringers 1,000 ML IV SCH (04:35)
[2019-10-19] MEDS: Bupivacaine/fentaNYL/NS 100 ML Bag EPIDUR SCH (05:10)
[2019-10-19] MEDS ORDERED: Methylergonovine 0.2 MG/1 ML Amp IM ONE (09:56)
[2019-10-19] MEDS ORDERED: Acetaminophen 325 MG Tab PO PRN (10:57)
[2019-10-19] MEDS ORDERED: Docusate Sodium 100 MG Cap PO PRN (10:57)
[2019-10-19] MEDS: Ibuprofen 600 MG Tab PO PRN ×2 (12:14→17:34)
[2019-10-20] MEDS: Ibuprofen 600 MG Tab PO PRN (06:55)
[2019-10-20] MEDS: Acetaminophen 325 MG Tab PO PRN (06:56)
--- NOTE | 2019-10-20 08:29 | PCM.SN.2 ---
- Free Text/Narrative Note: note: Patient is doing well in the period. Minimal lochia, voiding well, ambulated without problems. Nursing without concerns. Patient is afebrile, vital signs are stable Abdomen is flat, soft, uterus is below the umbilicus and is firm and nontender. Legs are nontender. Assessment: recovery going well. Plan: Routine care. Patient be discharged home within the next 24-48 hours.
--- NOTE | 2019-10-20 12:03 | PCM.DCSUM1 ---
Discharge Summary - Hospital Course Free Text/Narrative:: Sri is a 24-year-old 1 now para 1-0-0-1 white female who was admitted on 10/17/2019 for induction of labor. She underwent Cytotec induction/ripening of the cervix on the evening of the into the a.m. of the . On the she started on Pitocin. This was continued until approximately midday at which time a Barton bulb was placed with 30 cc of liquid placed within the balloon for mechanical dilation of the cervix. This fell out somewhat later in the day. She underwent artificial rupture membranes with resultant clear amniotic fluid. She progressed slowly but steadily to the a.m. of 10/19/2019. At that time specifically over 934 hours on 10/19/2019 she delivered a viable, avilez, female with Apgars of 6 and 8 with a weight of 3646 g (8 pounds 0.1 ounces), length of 21.0 inches in a direct occiput anterior position over an intact perineum. There was nuchal cord x1 which was loose and was reduced over the baby's head at the time of delivery. The baby is placed on mom's abdomen. Nose and mouth were bulb suctioned and the umbilical cord was allowed to pulsate for 2 to 3 minutes. Pitocin was increased to 500 cc/h to facilitate increase in uterine tone and decrease likelihood of bleeding. Umbilical cord blood was obtained. The umbilical cord had 3 vessels present within it. Patient was noted to have no lacerations within the vaginal vault. No suturing was required. The placenta delivered in a Bueno presentation, appeared intact and complete and was discarded per patient desire. Patient had approximately 300 cc blood loss. Patient plans to breast-feed. Condition: Good. patient is done well. She is ambulating well, has minimal lochia. She is nursing without problems. She is desiring discharge home. Diagnosis: Stroke: No - Discharge Data Discharge Date: 10/20/19 Discharge Disposition: Home, Self-Care 01 Condition: Good - Referral to Home Health Primary Care Physician: Lit Stratton MD - Patient Instructions Diet: Regular Diet as Tolerated (Nursing diet with increased calories and calcium as recommended) Activity: As Tolerated (No intercourse or tampons until bleeding resolves) Driving: May Drive Today Showering/Bathing: May Shower Showering/Bathing, Other: May take a bath Notify Provider of: Fever, Increased Pain, Swelling and Redness, Nausea and/or Vomiting - Discharge Plan Home Medications: Home Meds Pnv No.95/Ferrous Fum/Folic AC [ Caplet] 1 tab PO DAILY 05/18/19 [History] Ferrous Sulfate [Iron] 325 mg PO 10/17/19 [History] Acetaminophen [Tylenol] 650 mg PO Q4H PRN tablet 10/20/19 [Rx] Ibuprofen [Motrin] 600 mg PO Q4H PRN tablet 10/20/19 [Rx] Patient Handouts: Care After Vaginal Delivery, Eating Plan for Women, Steps to Quit Smoking Referrals: Lit Stratton MD [Primary Care Provider] - (Return to clinicDr. Stratton2 weeks.) - Discharge Summary/Plan Comment DC Time >30 min.: No Discharge Summary/Plan Comment: Discharge instructions: 1. Discharge home 2. Diet, activity and follow-up discussed with patient. Recommend nursing diet with increased calories and calcium. 3. Precautions given concern increased pain, bleeding, temperature, signs/symptoms of DVT/PE. 4. Medications per home medication was printed, discussed with and given to the patient. 5. Return to clinic-Dr. Stratton[facility] in 2 weeks. Diagnosis: Term -delivered Condition: Good - Patient Data Vitals - Most Recent: Last Vital Signs Temp 36.4 C 10/19/19 22:45 Pulse 72 10/20/19 10:51 Resp 16 10/20/19 10:51 BP 106/62 10/20/19 10:51 Pulse Ox 95 10/20/19 10:51 Weight - Most Recent: 81.556 kg I&O - Last 24 hours: Intake & Output 10/19/19 10/20/19 10/20/19 22:59 06:59 14:59 Intake Total 300 Balance 300 Med Orders - Current: Current Medications Acetaminophen (Tylenol) 650 mg PO Q4H PRN PRN Reason: mild pain or fever Docusate Sodium (Colace) 100 mg PO BID PRN PRN Reason: Constipation Ibuprofen (Motrin) 600 mg PO Q4H PRN PRN Reason: Mild pain or fever Last Admin: 10/20/19 06:55 Dose: 600 mg Documented by: Discontinued Medications Acetaminophen (Tylenol) 650 mg PO NOW ONE Stop: 10/18/19 13:05 Last Admin: 10/18/19 13:10 Dose: 650 mg Documented by: Acetaminophen (Tylenol) 650 mg PO Q6H PRN PRN Reason: Headache Last Admin: 10/20/19 06:56 Dose: 650 mg Documented by: Bupivacaine HCl (Sensorcaine-Mpf 0.25%) 10 ml .ROUTE .STK-MED ONE Stop: 10/19/19 04:01 Calcium Carbonate/Glycine (Tums) 1,000 mg PO Q2H PRN PRN Reason: Indigestion Diphenhydramine HCl (Benadryl) 25 mg IVPUSH Q6H PRN PRN Reason: pruritis Last Admin: 10/18/19 22:24 Dose: 25 mg Documented by: Ephedrine Sulfate (Ephedrine Sulfate) 5 mg IVPUSH ASDIRECTED PRN PRN Reason: Hypotension Ephedrine Sulfate (Ephedrine Sulfate) 5 mg IVPUSH ASDIRECTED PRN PRN Reason: Hypotension Fentanyl (Sublimaze) 100 mcg EPIDUR Q3H PRN PRN Reason: Pain Fentanyl (Sublimaze) 100 mcg EPIDUR Q3H PRN PRN Reason: Pain Last Admin: 10/18/19 13:41 Dose: 100 mcg Documented by: Fentanyl/Bupivacaine HCl (Fentanyl/Bupivacaine/Ns 2 Mcg-0.125% 100 Ml) 100 ml EPIDUR ASDIRECTED PRN PRN Reason: Pain Fentanyl/Bupivacaine HCl (Fentanyl/Bupivacaine/Ns 2 Mcg-0.125% 100 Ml) 100 ml EPIDUR ASDIRECTED TAO Last Admin: 10/19/19 05:10 Dose: 100 ml Documented by: Oxytocin/Lactated Ringer's (Pitocin In Lr 10 Units/1,000 Ml) 10 unit in 1,000 mls @ 500 mls/hr IV .CONTINUOUS TAO Lactated Ringer's (Ringers, Lactated) 1,000 mls @ 100 mls/hr IV ASDIRECTED TAO Last Admin: 10/19/19 04:35 Dose: 100 mls/hr Documented by: Oxytocin/Lactated Ringer's (Pitocin In Lr 10 Units/1,000 Ml) 10 unit in 1,000 mls @ 12 mls/hr IV TITRATE TAO; Protocol Last Titration: 10/18/19 19:19 Dose: 18 munits/min, 108 mls/hr Documented by: Phenylephrine HCl 1 mg/ Sodium (Chloride) 10.1 mls @ 1 mls/sec IV TITRATE TAO; Protocol Oxytocin/Lactated Ringer's (Pitocin In Lr 20 Units/1,000 Ml) 20 unit in 1,000 mls @ 60 mls/hr IV TITRATE TAO; Protocol Last Admin: 10/18/19 20:23 Dose: 60 mls/hr Documented by: Methylergonovine Maleate (Methergine) 0.2 mg IM Q4H ONE Stop: 10/19/19 09:57 Last Admin: 10/19/19 12:13 Dose: 0.2 mg Documented by: Misoprostol (Cytotec) 25 mcg VAG ONETIME ONE Stop: 10/17/19 20:01 Last Admin: 10/17/19 20:23 Dose: 25 mcg Documented by: Misoprostol (Cytotec) 50 mcg VAG Q3HR TAO Stop: 10/18/19 00:01 Last Admin: 10/18/19 02:43 Dose: 50 mcg Documented by: Misoprostol (Cytotec) Confirm Administered Dose 50 mcg .ROUTE .STK-MED ONE Stop: 10/18/19 02:41 Last Admin: 10/18/19 02:49 Dose: Not Given Documented by: Nalbuphine HCl (Nubain) 10 mg IVPUSH Q2H PRN PRN Reason: Pain Ondansetron HCl (Zofran) 4 mg IVPUSH Q4H PRN PRN Reason: Nausea/Vomiting Last Admin: 10/19/19 07:57 Dose: 4 mg Documented by: Ondansetron HCl (Zofran) 4 mg IVPUSH ONETIME PRN PRN Reason: Nausea/Vomiting Sodium Chloride (Saline Flush) 10 ml FLUSH ASDIRECTED PRN PRN Reason: Keep Vein Open
--- NOTE | 2019-10-20 19:35 | PCM48HPAN ---
Post Anesthesia Note - EVALUATION WITHIN 48HRS OF ANESTHETIC Vital Signs in Normal Range: Yes Patient Participated in Evaluation: Yes Respiratory Function Stable: Yes Airway Patent: Yes Cardiovascular Function Stable: Yes Hydration Status Stable: Yes Pain Control Satisfactory: Yes Nausea and Vomiting Control Satisfactory: Yes Mental Status Recovered: Yes Vital Signs: Last Vital Signs Temp 36.4 C 10/19/19 22:45 Pulse 72 10/20/19 10:51 Resp 16 10/20/19 10:51 BP 106/62 10/20/19 10:51 Pulse Ox 95 10/20/19 10:51
== END 2019-10-20 12:24 | disposition home or self-care (01) | DRG 807 ==
LOC: JD.OB 09:34 → OBSVTOIN 10-19 09:34 → JD.OB 10-19 10:05
PROVIDERS: ADMIT Obstetrics & Gynecology; ATTEND Obstetrics & Gynecology
PROC: 10E0XZZ Delivery of Products of Conception, External Approach (ICD-10-PCS; principal; 2019-10-19)
PROC: 10907ZC Drainage of Amniotic Fluid, Therapeutic from Products of Conception, Via Natural or Artificial Opening (ICD-10-PCS; 2019-10-19)
PROC: 3E0P7VZ Introduction of Hormone into Female Reproductive, Via Natural or Artificial Opening (ICD-10-PCS; 2019-10-19)
PROC: 3E033VJ Introduction of Other Hormone into Peripheral Vein, Percutaneous Approach (ICD-10-PCS; 2019-10-19)
PROC: 3E0R3BZ Introduction of Anesthetic Agent into Spinal Canal, Percutaneous Approach (ICD-10-PCS; 2019-10-19)
DX: O69.81X0 Labor and delivery complicated by cord around neck, without compression, not applicable or unspecified (principal); Z37.0 Single live birth; Z3A.40 40 weeks gestation of pregnancy; Z20.828 Contact with and (suspected) exposure to other viral communicable diseases
CPT/HCPCS: 36415; 51702; 59025; 59409; 85025; 86592; A9270-GY; J1200; J2210; J2405; J2590; J3010; J3490; J7120; U0002

== ENCOUNTER 2019-10-27 20:08 | Emergency (ER) | payer MEDICAID ==
[2019-10-27] MEDS ORDERED: Sodium Chloride 0.9% 1,000 ML IV STA (20:49)
[2019-10-27] MEDS ORDERED: Ondansetron 4 MG/2 ML SDV IVPUSH ONE (20:49)
[2019-10-27] MEDS ORDERED: Sodium Chloride 0.9% 10 ML Syringe FLUSH PRN (20:49)
[2019-10-27] MEDS ORDERED: HYDROmorphone 1 MG/ML Syringe IVPUSH ONE ×2 (20:50→22:34)
--- NOTE | 2019-10-27 20:58 | EDM.PDOC ---
ED HPI GENERAL MEDICAL PROBLEM - General Chief Complaint: Abdominal Pain Stated Complaint: SHARP ABDOMINAL PAIN Time Seen by Provider: 10/27/19 20:31 Source of Information: Reports: Patient History Limitations: Reports: No Limitations - History of Present Illness INITIAL COMMENTS - FREE TEXT/NARRATIVE: The patient presents with upper abdominal pain. This started at about 4am this morning when she got up to fee her baby. She is 1 week post . She has some mild vaginal bleeding and cramping that would be expected after delivery. She did have nausea and vomiting once after eating a couple days ago. She has no fever, chills, cough, congestion, runny nose, dysuria, hematuria or diarrhea. She still has her gallbladder and appendix. Onset: Sudden Duration: Hour(s): (4am it started) Location: Reports: Abdomen Quality: Reports: Sharp Severity: Moderate Improves with: Reports: None Worsens with: Reports: None Associated Symptoms: Reports: Nausea/Vomiting. Denies: Chest Pain, Cough, Fever/Chills, Headaches, Shortness of Breath Treatments [employer]: Reports: Acetaminophen Upper Abdomen Pain Score (Numeric/FACES): 5 - Related Data Allergies Allergy/AdvReac Type Severity Reaction Status Date / Time No Known Allergies Allergy Verified 10/27/19 20:33 Home Meds: Home Meds Pnv No.95/Ferrous Fum/Folic AC [ Caplet] 1 tab PO DAILY 05/18/19 [History] Ferrous Sulfate [Iron] 325 mg PO DAILY 10/17/19 [History] Acetaminophen [Tylenol] 650 mg PO Q4H PRN tablet 10/20/19 [Rx] Ibuprofen [Motrin] 600 mg PO Q4H PRN tablet 10/20/19 [Rx] Omeprazole 20 mg PO DAILY #20 tablet. 10/28/19 [Rx] Past Medical History - Past Health History Medical/Surgical History: Denies Medical/Surgical History Gastrointestinal History: Reports: Other (See Below) Other Gastrointestinal History: constipation Genitourinary History: Reports: STD, Other (See Below) Other Genitourinary History: history of chlamydia MIDLEVEL PROVIDER History: Reports: , Spontaneous Other MIDLEVEL PROVIDER History: G 3 P 1 Musculoskeletal History: Reports: Other (See Below) Other Musculoskeletal History: lumabr back pain Neurological History: Reports: Migraines Psychiatric History: Reports: Anxiety, Depression Other Psychiatric History: suicide attempt age 12. Endocrine/Metabolic History: Reports: Other (See Below) Other Endocrine/Metabolic History: elevated gtt - Past Surgical History Female Surgical History: Reports: D&C Other Female Surgeries/Procedures: 2 miscarriages Social & Family History - Family History Family Medical History: Noncontributory - Caffeine Use Caffeine Use: Reports: Coffee, Soda - Recreational Drug Use Recreational Drug Use: No Drug Use in Last 12 Months: No ED ROS GENERAL - Review of Systems Review Of Systems: See Below Constitutional: Reports: No Symptoms HEENT: Reports: No Symptoms Respiratory: Reports: No Symptoms Cardiovascular: Reports: No Symptoms Endocrine: Reports: No Symptoms GI/Abdominal: Reports: Abdominal Pain, Nausea, Vomiting. Denies: Diarrhea : Reports: No Symptoms Musculoskeletal: Reports: No Symptoms Skin: Reports: No Symptoms ED EXAM, GI/ABD - Physical Exam Exam: See Below Exam Limited By: No Limitations General Appearance: Alert, No Apparent Distress Ears: Normal External Exam Nose: Normal Inspection Head: Atraumatic, Normocephalic Neck: Normal Inspection Respiratory/Chest: No Respiratory Distress, Lungs Clear, Normal Breath Sounds Cardiovascular: Regular Rate, Rhythm, No Edema, No Murmur GI/Abdominal Exam: Soft, No Organomegaly, No Mass, Tender (Moderate tenderness to the right upper abdomen and accross to the left upper abdomen) Course - Vital Signs Last Recorded V/S: Last Vital Signs Temp 98.5 F 10/27/19 20:28 Pulse 78 10/27/19 20:28 Resp 15 10/27/19 20:28 BP 123/87 10/27/19 20:28 Pulse Ox 99 10/27/19 20:28 - Orders/Labs/Meds Orders: Active Orders 24 hr Category Date Time Status Peripheral IV Care [RC] . DIRECTED Care 10/27/19 20:49 Active Abdomen Ltd [US] Stat Exams 10/27/19 20:49 Taken CULTURE URINE [RM] Stat Lab 10/27/19 23:16 Received Sodium Chloride 0.9% [Saline Flush] Med 10/27/19 20:49 Active 10 ml FLUSH ASDIRECTED PRN ED Antiemetic Medication Reflex [OM.PC] Stat Oth 10/27/19 20:49 Ordered Peripheral IV Insertion Adult [OM.PC] Stat Oth 10/27/19 20:49 Ordered Medication Orders Sodium Chloride (Saline Flush) 10 ml FLUSH ASDIRECTED PRN PRN Reason: Keep Vein Open Last Admin: 10/27/19 21:34 Dose: 10 ml Documented by: DOLLY Labs: Laboratory Tests 10/27/19 10/27/19 10/27/19 Range/Units 21:18 21:18 23:16 WBC 9.04 (3.98-10.04) K/mm3 RBC 4.46 (3.98-5.22) M/mm3 Hgb 13.2 (11.2-15.7) gm/dl Hct 39.5 (34.1-44.9) % MCV 88.6 (79.4-94.8) fl MCH 29.6 (25.6-32.2) pg MCHC 33.4 (32.2-35.5) g/dl RDW Std Deviation 41.5 (36.4-46.3) fL Plt Count 433 H D (182-369) K/mm3 MPV 9.3 L (9.4-12.3) fl Neut % (Auto) 58.0 (34.0-71.1) % Lymph % (Auto) 31.7 (19.3-51.7) % [place] % (Auto) 8.4 (4.7-12.5) % Eos % (Auto) 1.1 (0.7-5.8) Baso % (Auto) 0.7 (0.1-1.2) % Neut # (Auto) 5.24 (1.56-6.13) K/mm3 Lymph # (Auto) 2.87 (1.18-3.74) K/mm3 [place] # (Auto) 0.76 H (0.24-0.36) K/mm3 Eos # (Auto) 0.10 (0.04-0.36) K/mm3 Baso # (Auto) 0.06 (0.01-0.08) K/mm3 Manual Slide Review Not Reportable Sodium 139 (136-145) mEq/L Potassium 3.8 (3.5-5.1) mEq/L Chloride 103 (98-107) mEq/L Carbon Dioxide 25 (21-32) mEq/L Anion Gap 14.8 (5-15) BUN 11 (7-18) mg/dL Creatinine 0.8 (0.55-1.02) mg/dL Est Cr Clr Drug Dosing 91.24 mL/min Estimated GFR (MDRD) > 60 (>60) mL/min BUN/Creatinine Ratio 13.8 L (14-18) Glucose 75 (74-106) mg/dL Calcium 9.1 (8.5-10.1) mg/dL Total Bilirubin 0.5 (0.2-1.0) mg/dL AST 15 (15-37) U/L ALT 16 (14-59) U/L Alkaline Phosphatase 66 (46-116) U/L Total Protein 7.7 (6.4-8.2) g/dl Albumin 3.0 L (3.4-5.0) g/dl Globulin 4.7 gm/dL Albumin/Globulin Ratio 0.6 L (1-2) Lipase 81 (73-393) U/L Urine Color Yellow (Yellow) Urine Appearance Slt cloudy H (Clear) Urine pH 6.0 (5.0-8.0) Ur Specific [place] > or = 1.030 (1.005-1.030) Urine Protein 1+ H (Negative) Urine Glucose (UA) Negative (Negative) Urine Ketones 1+ H (Negative) Urine Occult Blood 3+ H (Negative) Urine Nitrite Negative (Negative) Urine Bilirubin Negative (Negative) Urine Urobilinogen 0.2 (0.2-1.0) Ur Leukocyte Esterase Trace H (Negative) Urine RBC 75-100 H (0-5) /hpf Urine WBC 5-10 H (0-5) /hpf Ur Squamous Epith Cells 0-5 (0-5) /hpf Urine Bacteria Few (FEW) /hpf Urine Mucus Few (FEW) /hpf Meds: Medications Generic Name Dose Route Start Last Admin Trade Name Freq PRN Reason Stop Dose Admin Sodium Chloride 10 ml 10/27/19 20:49 10/27/19 21:34 Saline Flush FLUSH 10 ml ASDIRECTED PRN Administration Keep Vein Open Discontinued Medications Generic Name Dose Route Start Last Admin Trade Name Freq PRN Reason Stop Dose Admin Famotidine 20 mg 10/27/19 21:01 10/27/19 21:31 Pepcid IVPUSH 10/27/19 21:02 20 mg ONETIME ONE Administration Hydromorphone HCl 1 mg 10/27/19 20:50 10/27/19 21:30 Dilaudid IVPUSH 10/27/19 20:51 1 mg ONETIME ONE Administration Hydromorphone HCl 1 mg 10/27/19 22:34 10/27/19 23:07 Dilaudid IVPUSH 10/27/19 22:35 1 mg ONETIME ONE Administration Sodium Chloride 1,000 mls @ 1,000 mls/hr 10/27/19 20:49 10/27/19 21:28 Normal Saline IV 10/27/19 21:48 1,000 mls/hr .BOLUS STA Administration Ondansetron HCl 4 mg 10/27/19 20:49 10/27/19 21:31 Zofran IVPUSH 10/27/19 20:50 4 mg ONETIME ONE Administration - Re-Assessments/Exams Free Text/Narrative Re-Assessment/Exam: 10/27/19 21:00 I ordered an IV NS 1L bolus, zofran 4mg IV, dilaudid 1mg IV, labs, UA and an US of her right upper abdomen. The last time she ate anything was 1pm today. 10/27/19 23:57 Her platelets were a little elevated at 433. Her WBC was normal. Her CMP looks good. Her lipase was normal. Her UA has some blood and WBCs. I have ordered a culture. Her US shows nothing acute. She still had more pain so I ordered more dilaudid. I talked to Dr Hawley and he wanted her on omeprazole and put in an order for a HIDA scan. She can follow up with him. I will also give her something for pain. Departure - Departure Time of Disposition: 23:55 Disposition: Home, Self-Care 01 Condition: Good Clinical Impression: Abdominal pain Qualifiers: Abdominal location: right upper quadrant Qualified Code(s): R10.11 - Right upper quadrant pain - Discharge Information *PRESCRIPTION DRUG MONITORING PROGRAM REVIEWED*: No *COPY OF PRESCRIPTION DRUG MONITORING REPORT IN PATIENT SAMAN: No Prescriptions: Omeprazole 20 mg PO DAILY #20 tablet. Referrals: Lit Stratton MD [Primary Care Provider] - Amy Hawley MD [Physician] - 1 Week Forms: ED Department Discharge Additional Instructions: Avoid fried fatty foods. I have ordered a HIDA scan. Someone from our department will call you with a time. Take the omeprazole daily. Take tylenol or motrin as needed for pain. If that does not help, try the hydrocodone. You may have to pump and dump if you take to many doses of the hydrocodone. Please return if you are worse. Sepsis Event Note (ED) - Evaluation Sepsis Screening Result: No Definite Risk - Focused Exam Vital Signs: Vital Signs Temp Pulse Resp BP Pulse Ox 10/27/19 20:28 98.5 F 78 15 123/87 99 - My Orders Last 24 Hours: My Active Orders 10/27/19 20:49 Peripheral IV Care [RC] . DIRECTED Abdomen Ltd [US] Stat Sodium Chloride 0.9% [Saline Flush] 10 ml FLUSH ASDIRECTED PRN ED Antiemetic Medication Reflex [OM.PC] Stat Peripheral IV Insertion Adult [OM.PC] Stat 10/27/19 23:16 CULTURE URINE [RM] Stat - Assessment/Plan Last 24 Hours: My Active Orders 10/27/19 20:49 Peripheral IV Care [RC] . DIRECTED Abdomen Ltd [US] Stat Sodium Chloride 0.9% [Saline Flush] 10 ml FLUSH ASDIRECTED PRN ED Antiemetic Medication Reflex [OM.PC] Stat Peripheral IV Insertion Adult [OM.PC] Stat 10/27/19 23:16 CULTURE URINE [RM] Stat
[2019-10-27] MEDS ORDERED: Famotidine 20 MG/2 ML SDV IVPUSH ONE (21:01)
--- NOTE | 2019-10-28 11:02 | US ---
Limited abdominal ultrasound: Multiple real-time images of the upper right abdomen were obtained. Comparison: Prior CT abdomen and pelvis exam of 10/21/17 is available. Liver shows no discrete abnormality. Pancreas appears within normal limits. Gallbladder contains no definite shadowing gallstones. No gallbladder wall thickening or biliary duct dilatation is appreciated. Gallbladder is not optimally distended for good evaluation. Right kidney shows no hydronephrosis or mass. Right kidney is length 12.1 cm. Inferior vena cava is patent. Main portal vein shows normal hepatopedal flow. Impression: 1. No abnormality is identified on right upper quadrant abdominal ultrasound. Diagnostic code #1 Agree with preliminary report issued by [facility], preliminary report finalized on 10/27/19, 10:58 PM Central Time This report was dictated in [place] Standard Time
== END 2019-10-28 00:14 | disposition home or self-care (01) ==
LOC: JD.ED 20:08
DX: O90.89 Other complications of the puerperium, not elsewhere classified (principal); R10.11 Right upper quadrant pain; Z79.899 Other long term (current) drug therapy
CPT/HCPCS: 36415; 76705; 80053; 81001; 83690; 85025; 87086; 96361; 96374; 96375; 96376; 99284; J1170; J2405; J3490; J7030; 99283

== ENCOUNTER 2019-10-29 21:05 | Emergency (ER) | payer MEDICAID ==
[2019-10-29] MEDS ORDERED: HYDROmorphone 0.5 MG/0.5 ML Syringe IVPUSH ONE ×3 (21:28→23:41)
[2019-10-29] MEDS ORDERED: Sodium Chloride 0.9% 10 ML Syringe FLUSH PRN (21:28)
[2019-10-29] MEDS ORDERED: Ondansetron 4 MG/2 ML SDV IVPUSH ONE (21:28)
[2019-10-29] MEDS ORDERED: Sodium Chloride 0.9% 1,000 ML IV SCH (21:30)
[2019-10-29] MEDS ORDERED: Ondansetron 4 MG/2 ML SDV ONE (21:32)
--- NOTE | 2019-10-29 21:56 | EDM.PDOC ---
ED HPI GENERAL MEDICAL PROBLEM - General Chief Complaint: Abdominal Pain Stated Complaint: LOWER ABDOMINAL PAIN/BACK PAIN Time Seen by Provider: 10/29/19 21:13 Source of Information: Reports: Patient History Limitations: Reports: No Limitations - History of Present Illness INITIAL COMMENTS - FREE TEXT/NARRATIVE: Patient is a 24-year-old female presenting to the emergency department with complaints of sharp abdominal pain and cramping. She is unable to localize it to one area. States it seems to be moving all over her abdomen. She was seen in this emergency department 2 days ago for right upper quadrant abdominal pain. She states that those symptoms resolved yesterday, however today she is having significant generalized abdominal pain that is transient in nature. Pain worsens with any type of food intake. She is concerned that she could have an infection as she states she had a fever of 101 at around 5 PM this evening, however it has since resolved. She is had decreased appetite but denies any vomiting. She feels she may also be constipated. She did have a small bowel movement today but states it was quite hard and feels like she has pressure in her rectum. Patient is approximately 10 days . States she does still have a light lochia. States she had some mild cramping suprapubically today, however the pain she is currently having is located higher in her abdomen. Earlier in the evening, the pain was localized to her right lower quadrant, however she denies right lower quadrant abdominal pain at this time. She is scheduled to have a HIDA scan completed of her gallbladder on Thursday. She has been taking Thornton that was prescribed 2 days ago for pain. Last dose was about 2-1/2 hours prior to coming to ER. She denies a history of previous abdominal surgeries or pathology. Abdomen Pain Score (Numeric/FACES): 6 - Related Data Allergies Allergy/AdvReac Type Severity Reaction Status Date / Time No Known Allergies Allergy Verified 10/29/19 21:14 Home Meds: Home Meds Pnv No.95/Ferrous Fum/Folic AC [ Caplet] 1 tab PO DAILY 05/18/19 [History] Ferrous Sulfate [Iron] 325 mg PO DAILY 10/17/19 [History] Acetaminophen [Tylenol] 650 mg PO Q4H PRN tablet 10/20/19 [Rx] Ibuprofen [Motrin] 600 mg PO Q4H PRN tablet 10/20/19 [Rx] Omeprazole 20 mg PO DAILY #20 tablet. 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 Endocrine/Metabolic History: Reports: Other (See Below) Other Endocrine/Metabolic History: elevated gtt - Past Surgical History Female Surgical History: Reports: D&C Other Female Surgeries/Procedures: 2 miscarriages Social & Family History - Family History Family Medical History: Noncontributory - Tobacco Use Smoking Status *Q: Former Smoker Used Tobacco, but Quit: Yes Month/Year Tobacco Last Used: 2017 - Caffeine Use Caffeine Use: Reports: Coffee, Soda - Recreational Drug Use Recreational Drug Use: No ED ROS GENERAL - Review of Systems Review Of Systems: See Below Constitutional: Reports: No Symptoms. Denies: Fever, Chills HEENT: Reports: No Symptoms Respiratory: Reports: No Symptoms Cardiovascular: Reports: No Symptoms Endocrine: Reports: No Symptoms GI/Abdominal: Reports: Abdominal Pain (Generalized. Moves from right to left. Present to upper and lower abdomen.), Constipation, Nausea. Denies: Diarrhea, Vomiting : Reports: No Symptoms Musculoskeletal: Reports: No Symptoms Skin: Reports: No Symptoms Neurological: Reports: No Symptoms Psychiatric: Reports: No Symptoms Hematologic/Lymphatic: Reports: No Symptoms Immunologic: Reports: No Symptoms ED EXAM, GI/ABD - Physical Exam Exam: See Below Exam Limited By: No Limitations General Appearance: Alert, WD/WN, No Apparent Distress Respiratory/Chest: No Respiratory Distress, Lungs Clear, Normal Breath Sounds, No Accessory Muscle Use, Chest Non-Tender Cardiovascular: Normal Peripheral Pulses, Regular Rate, Rhythm, No Edema, No Gallop, No JVD, No Murmur, No Rub GI/Abdominal Exam: Normal Bowel Sounds, Soft, Non-Tender (Generalized abdominal tenderness throughout), Distended (Mildly). No: Guarding, Rigid Neurological: Alert, Oriented, CN II-XII Intact, Normal Cognition, Normal Gait, Normal Reflexes, No Motor/Sensory Deficits Psychiatric: Normal Affect, Normal Mood Skin Exam: Warm, Dry, Intact, Normal Color, No Rash Course - Vital Signs Last Recorded V/S: Last Vital Signs Temp 98.6 F 10/29/19 21:15 Pulse 87 10/29/19 21:15 Resp 17 10/29/19 21:15 BP 152/136 H 10/29/19 21:15 Pulse Ox 95 10/29/19 21:15 - Orders/Labs/Meds Labs: Laboratory Tests 10/29/19 10/29/19 10/29/19 Range/Units 21:40 21:40 21:40 WBC 19.73 H (3.98-10.04) K/mm3 RBC 4.13 (3.98-5.22) M/mm3 Hgb 12.2 (11.2-15.7) gm/dl Hct 36.6 (34.1-44.9) % MCV 88.6 (79.4-94.8) fl MCH 29.5 (25.6-32.2) pg MCHC 33.3 (32.2-35.5) g/dl RDW Std Deviation 40.7 (36.4-46.3) fL Plt Count 435 H (182-369) K/mm3 MPV 9.0 L (9.4-12.3) fl Neut % (Auto) 84.0 H (34.0-71.1) % Lymph % (Auto) 11.2 L (19.3-51.7) % Howard % (Auto) 4.1 L (4.7-12.5) % Eos % (Auto) 0.2 L (0.7-5.8) Baso % (Auto) 0.2 (0.1-1.2) % Neut # (Auto) 16.60 H (1.56-6.13) K/mm3 Lymph # (Auto) 2.20 (1.18-3.74) K/mm3 Howard # (Auto) 0.81 H (0.24-0.36) K/mm3 Eos # (Auto) 0.03 L (0.04-0.36) K/mm3 Baso # (Auto) 0.04 (0.01-0.08) K/mm3 Manual Slide Review Abnormal smear Sodium 138 (136-145) mEq/L Potassium 3.8 (3.5-5.1) mEq/L Chloride 101 (98-107) mEq/L Carbon Dioxide 26 (21-32) mEq/L Anion Gap 14.8 (5-15) BUN 7 (7-18) mg/dL Creatinine 0.9 (0.55-1.02) mg/dL Est Cr Clr Drug Dosing 84.67 mL/min Estimated GFR (MDRD) > 60 (>60) mL/min BUN/Creatinine Ratio 7.8 L (14-18) Glucose 90 (74-106) mg/dL Calcium 8.6 (8.5-10.1) mg/dL Total Bilirubin 0.8 (0.2-1.0) mg/dL AST 13 L (15-37) U/L ALT 17 (14-59) U/L Alkaline Phosphatase 61 (46-116) U/L C-Reactive Protein 2.8 H* (<1.0) mg/dL Total Protein 7.4 (6.4-8.2) g/dl Albumin 3.1 L (3.4-5.0) g/dl Globulin 4.3 gm/dL Albumin/Globulin Ratio 0.7 L (1-2) Lipase 55 L (73-393) U/L Urine Color (Yellow) Urine Appearance (Clear) Urine pH (5.0-8.0) Ur Specific [place] (1.005-1.030) Urine Protein (Negative) Urine Glucose (UA) (Negative) Urine Ketones (Negative) Urine Occult Blood (Negative) Urine Nitrite (Negative) Urine Bilirubin (Negative) Urine Urobilinogen (0.2-1.0) Ur Leukocyte Esterase (Negative) Urine RBC (0-5) /hpf Urine WBC (0-5) /hpf Urine WBC Clumps (NOT SEEN) /hpf Ur Squamous Epith Cells (0-5) /hpf Ur Renal Epithelial Cell (0-5) /hpf Urine Bacteria (FEW) /hpf Urine Mucus (FEW) /hpf 10/29/19 Range/Units 23:10 WBC (3.98-10.04) K/mm3 RBC (3.98-5.22) M/mm3 Hgb (11.2-15.7) gm/dl Hct (34.1-44.9) % MCV (79.4-94.8) fl MCH (25.6-32.2) pg MCHC (32.2-35.5) g/dl RDW Std Deviation (36.4-46.3) fL Plt Count (182-369) K/mm3 MPV (9.4-12.3) fl Neut % (Auto) (34.0-71.1) % Lymph % (Auto) (19.3-51.7) % Howard % (Auto) (4.7-12.5) % Eos % (Auto) (0.7-5.8) Baso % (Auto) (0.1-1.2) % Neut # (Auto) (1.56-6.13) K/mm3 Lymph # (Auto) (1.18-3.74) K/mm3 Howard # (Auto) (0.24-0.36) K/mm3 Eos # (Auto) (0.04-0.36) K/mm3 Baso # (Auto) (0.01-0.08) K/mm3 Manual Slide Review Sodium (136-145) mEq/L Potassium (3.5-5.1) mEq/L Chloride (98-107) mEq/L Carbon Dioxide (21-32) mEq/L Anion Gap (5-15) BUN (7-18) mg/dL Creatinine (0.55-1.02) mg/dL Est Cr Clr Drug Dosing mL/min Estimated GFR (MDRD) (>60) mL/min BUN/Creatinine Ratio (14-18) Glucose (74-106) mg/dL Calcium (8.5-10.1) mg/dL Total Bilirubin (0.2-1.0) mg/dL AST (15-37) U/L ALT (14-59) U/L Alkaline Phosphatase (46-116) U/L C-Reactive Protein (<1.0) mg/dL Total Protein (6.4-8.2) g/dl Albumin (3.4-5.0) g/dl Globulin gm/dL Albumin/Globulin Ratio (1-2) Lipase (73-393) U/L Urine Color Dark yellow (Yellow) Urine Appearance Slt cloudy H (Clear) Urine pH 6.5 (5.0-8.0) Ur Specific [place] 1.015 (1.005-1.030) Urine Protein 2+ H (Negative) Urine Glucose (UA) Negative (Negative) Urine Ketones 1+ H (Negative) Urine Occult Blood 3+ H (Negative) Urine Nitrite Negative (Negative) Urine Bilirubin Negative (Negative) Urine Urobilinogen 0.2 (0.2-1.0) Ur Leukocyte Esterase 1+ H (Negative) Urine RBC >100 H (0-5) /hpf Urine WBC 20-30 H (0-5) /hpf Urine WBC Clumps Few (NOT SEEN) /hpf Ur Squamous Epith Cells 0-5 (0-5) /hpf Ur Renal Epithelial Cell 0-5 (0-5) /hpf Urine Bacteria Moderate H (FEW) /hpf Urine Mucus Moderate H (FEW) /hpf Meds: Medications Discontinued Medications Generic Name Dose Route Start Last Admin Trade Name Freq PRN Reason Stop Dose Admin Diatrizoate Meglum/Diatrizoate Sod 120 ml 10/30/19 02:05 10/30/19 02:34 Gastrografin 37% PO 10/30/19 02:06 120 ml ONETIME ONE Administration Dicyclomine HCl 20 mg 10/29/19 23:50 10/29/19 23:58 Bentyl PO 10/29/19 23:51 20 mg ONETIME ONE Administration Hydromorphone HCl 0.5 mg 10/29/19 21:28 10/29/19 21:42 Dilaudid IVPUSH 10/29/19 21:29 0.5 mg ONETIME ONE Administration Hydromorphone HCl 0.5 mg 10/29/19 23:18 10/29/19 23:27 Dilaudid IVPUSH 10/29/19 23:19 0.5 mg ONETIME ONE Administration Hydromorphone HCl 0.5 mg 10/29/19 23:41 Dilaudid IVPUSH 10/29/19 23:42 ONETIME ONE Sodium Chloride 1,000 mls @ 150 mls/hr 10/29/19 21:30 10/29/19 21:41 Normal Saline IV 150 mls/hr ASDIRECTED TAO Administration Ceftriaxone Sodium 1 gm/ 100 mls @ 200 mls/hr 10/29/19 23:42 10/29/19 23:57 Sodium Chloride IV 10/30/19 00:11 200 mls/hr ONETIME ONE Administration Iopamidol 100 ml 10/30/19 02:06 10/30/19 02:35 Isovue-300 (61%) IVPUSH 10/30/19 02:07 100 ml ONETIME ONE Administration Ketorolac Tromethamine 30 mg 10/29/19 23:18 10/29/19 23:24 Toradol IVPUSH 10/29/19 23:19 30 mg ONETIME ONE Administration Magnesium Citrate 296 ml 10/30/19 00:20 10/30/19 00:36 Citrate Of Magnesia PO 10/30/19 00:21 296 ml ONETIME ONE Administration Ondansetron HCl 4 mg 10/29/19 21:28 10/29/19 21:40 Zofran IVPUSH 10/29/19 21:29 4 mg ONETIME ONE Administration Ondansetron HCl Confirm 10/29/19 21:32 10/29/19 21:49 Zofran Administered 10/29/19 21:33 Not Given Dose 4 mg .ROUTE .STK-MED ONE Sodium Chloride 10 ml 10/29/19 21:28 10/29/19 21:41 Saline Flush FLUSH 10 ml ASDIRECTED PRN Administration Keep Vein Open Sodium Chloride 10 ml 10/30/19 02:06 10/30/19 02:35 Saline Flush FLUSH 10/30/19 02:07 10 ml ONETIME ONE Administration - Re-Assessments/Exams Free Text/Narrative Re-Assessment/Exam: 10/30/19 00:04 Hematology was significant for WBC elevated at 19.73, CRP 2.8. Lipase was normal. Urinalysis showed 2+ protein, 1+ ketones, 3+ occult blood, and 1+ leukocyte esterase, greater than 100 RBCs, 20-30 WBCs, moderate bacteria, and moderate mucus. CT scan of the abdomen pelvis showed: 1. Uterus is enlarged suggesting recent state. Endometrium is normal thickness. No air within the uterus. Nonspecific myometrial hypoenhancement in the lower uterine segment. No periuterine fluid collections. 2. Bladder is mostly decompressed, limiting assessment. Mild bladder wall thickening is at least partially secondary to underdistention. Mild pericystic fat stranding. Suggest correlation with urinalysis to exclude cystitis. No evidence of pyelonephritis. Patient continues to have intermittent generalized abdominal pain. Pain is not localized to any particular area in her abdomen and moves from side to side. On review of the CT scan, there are some areas of increased stool consolidation as well as gas. My suspicion is that this is due to gas pain as well as some constipation. We will give her Rocephin 1 mg IV in the emergency department. I also ordered Bentyl 20 mg p.o. to be given for the abdominal cramping. Discussed that the oral contrast from the CT scan is in itself a laxative, however also send her home with a bottle of magnesium citrate if she does not have a bowel movement by tomorrow morning. I will write an [employer] med prescription ciprofloxacin and dicyclomine. Recommend that she get up and move around as much as possible to help facilitate passage of gas. Return to ER if symptoms do not improve or if she is not able to pass gas or have a bowel movement after the above treatments. Discharge instructions as documented. Departure - Departure Time of Disposition: 00:05 Disposition: Home, Self-Care 01 Condition: Good Clinical Impression: UTI, Urinary tract infectious disease Abdominal pain Qualifiers: Abdominal location: right upper quadrant Qualified Code(s): R10.11 - Right upper quadrant pain - Discharge Information *PRESCRIPTION DRUG MONITORING PROGRAM REVIEWED*: No *COPY OF PRESCRIPTION DRUG MONITORING REPORT IN PATIENT SAMAN: No Instructions: Abdominal Pain, Adult, [id number], Urinary Tract Infection, Adult Referrals: PCP,None [Primary Care Provider] - Forms: ED Department Discharge Additional Instructions: You were seen in the emergency department this evening for generalized abdominal pain as well as a fever prior to coming to ER. He work-up included blood work, urinalysis, and a CT scan of your abdomen pelvis. Results of your blood work showed a an elevated white blood cell count indicative possible infection. Your urinalysis shows that you do have a urinary tract infection. CT scan of the abdomen pelvis showed some inflammation of the bladder which was consistent with a diagnosis of urinary tract infection. There is some increased air and some areas of increased stool on the CT scan as well which is likely the cause of your pain. As we discussed, the oral contrast that you drink in itself serves as a laxative. You have also been sent home with a bottle of magnesium citrate. If you are not passing gas and having bowel movements by tomorrow morning, I would recommend that you drink the bottle of magnesium citrate. You have been provided with a prescription for ciprofloxacin which is an antibiotic, as well as dicyclomine which is for abdominal cramping. Take these medications as prescribed. If you are unable to have a bowel movement after the above treatments or your pain should worsen rather than improve, please return to the emergency department. Keep your appointment for your HIDA scan as scheduled on Thursday. Sepsis Event Note (ED) - Evaluation Sepsis Screening Result: No Definite Risk
[2019-10-29] MEDS ORDERED: Ketorolac 30 MG/ML SDV IVPUSH ONE (23:18)
[2019-10-29] MEDS ORDERED: cefTRIAXone 1 GM in Sodium Chloride 0.9% 100 ML IV ONE (23:42)
[2019-10-29] MEDS ORDERED: Dicyclomine 10 MG Cap PO ONE (23:50)
[2019-10-30] MEDS ORDERED: Magnesium Citrate Solution 296 ML Bottle PO ONE (00:20)
[2019-10-30] MEDS ORDERED: Diatrizoate Meglumine/Diatrizoate Sodium 37% 120 ML Bottle PO ONE (02:05)
[2019-10-30] MEDS ORDERED: Iopamidol 612 MG/ML 100 ML Bottle IVPUSH ONE (02:06)
[2019-10-30] MEDS ORDERED: Sodium Chloride 0.9% 10 ML Syringe FLUSH ONE (02:06)
--- NOTE | 2019-10-31 11:49 | CT ---
CT abdomen and pelvis Technique: Multiple axial sections were obtained from above the dome of the diaphragm inferiorly through the pubic symphysis. Intravenous contrast was utilized. No oral contrast has been given. Delayed images were obtained through the bladder. Comparison: Prior CT abdomen and pelvis study of 10/21/17 is available. Findings: Visualized lung bases show nothing acute. Liver contains no focal parenchymal abnormality. Spleen appears within normal limits. Gallbladder contains no calcified gallstones. Adrenal glands contain no nodule. Spleen shows a low density pseudocyst anteriorly measuring 1.0 cm. This finding is believed to be present on prior study but better seen currently due to contrast enhancement. This finding is most likely benign. Adrenal glands show no nodule. Pancreas shows no abnormality. Kidneys show symmetric contrast enhancement without hydronephrosis or mass. Aorta shows no aneurysm. No retroperitoneal adenopathy or mesenteric abnormalities are seen. No pelvic mass or adenopathy is seen. Uterus is enlarged most likely representing recent . Poorly enhancing area is noted within the lower uterine segment. This low density is seen on both sides of the endometrial and endocervical canal. No enhancing material is seen within the endometrial cavity to indicate definite retained products of conception. No free fluid or definite inflammatory change is appreciated. Appendix is not definitely visualized. Small fat-containing umbilical hernia is noted. Delayed images show no contrast within the distal ureters or bladder raising the possibility of dehydration. Impression: 1. Enlarged uterus most likely in state. Low density area on both sides of the endometrial cavity within the lower uterine segment. Finding is uncertain as to etiology. Difficult to exclude myometritis or poorly enhancing fibroid change. 2. No acute abnormality is otherwise appreciated. Diagnostic code #3 This report was dictated in MDT I agree with preliminary report from [facility], finalized on 10/30/19, 12:10 AM Central Daylight Time
== END 2019-10-30 00:38 | disposition home or self-care (01) ==
LOC: JD.ED 21:05
DX: O86.20 Urinary tract infection following delivery, unspecified (principal); O90.89 Other complications of the puerperium, not elsewhere classified; R10.11 Right upper quadrant pain; O99.13 Other diseases of the blood and blood-forming organs and certain disorders involving the immune mechanism complicating the puerperium; D72.829 Elevated white blood cell count, unspecified; Z87.891 Personal history of nicotine dependence
CPT/HCPCS: 36415; 74177; 80053; 81001; 83690; 85025; 86140; 87086; 96361; 96365; 96375; 96376; 99284; A9270; J0696; J1170; J1885; J2405; J7030; J7050; Q9963; Q9967; 99283

== ENCOUNTER 2020-06-15 10:41 | Emergency (ER) | payer MEDICAID ==
[2020-06-15] MEDS ORDERED: diphenhydrAMINE 50 MG/ML SDV IVPUSH ONE (11:11)
[2020-06-15] MEDS ORDERED: Ketorolac 30 MG/ML SDV IVPUSH ONE (11:11)
[2020-06-15] MEDS ORDERED: Ondansetron 4 MG/2 ML SDV IVPUSH ONE (11:11)
[2020-06-15] MEDS ORDERED: Sodium Chloride 0.9% 1,000 ML IV STA (11:11)
--- NOTE | 2020-06-15 11:18 | EDM.PDOC ---
ED HPI GENERAL MEDICAL PROBLEM - General Chief Complaint: General Stated Complaint: SOB/CHEST PAIN - COVID + Time Seen by Provider: 06/15/20 11:06 Source of Information: Reports: Patient, RN Notes Reviewed History Limitations: Reports: No Limitations - History of Present Illness INITIAL COMMENTS - FREE TEXT/NARRATIVE: Patient is a 25-year-old female presenting to the emergency department with complaints of a sore throat, severe cough, intermittent chest pain, nausea, abdominal pain, body aches, mild shortness of breath, and severe migraine with aura and blurry vision. Symptoms began on Thursday of this week and worsened on Thursday. She was diagnosed as Covid positive yesterday. States she does have a history of chronic migraines and states that she often gets blurry vision and aura with them. She takes Excedrin for this, however she has not had a dose of this since 3:00 this morning. She had one episode of vomiting yesterday and states there was a small amount of blood-tinged sputum and it. She states that her cough is very harsh and productive. At this time she feels nauseous but has had no vomiting. She is also complaining of severe left ear pain that causes intermittent, sharp, stabbing pains. She has had fever at home with a T-max of 103. Temperature in triage was 102.9. Vital signs were otherwise normal. She is not hypoxic with a oxygen saturation of 98% on room air. With the exception of migraines, she denies any chronic medical conditions. Left Ear Pain Score (Numeric/FACES): 10 - Related Data Allergies Allergy/AdvReac Type Severity Reaction Status Date / Time No Known Allergies Allergy Verified 06/15/20 11:05 Home Meds: Home Meds Cefdinir 300 mg PO BID #13 capsule 06/15/20 [Rx] LORazepam [Ativan] 0.5 mg PO DAILY PRN 06/15/20 [History] dexAMETHasone [Dexamethasone] 4 mg PO BID #9 tab 06/15/20 [Rx] Past Medical History - Past Health History Medical/Surgical History: Denies Medical/Surgical History Gastrointestinal History: Reports: Other (See Below) Other Gastrointestinal History: constipation Genitourinary History: Reports: STD, Other (See Below) Other Genitourinary History: history of chlamydia [employer] PROFESS[employer] History: Reports: , Spontaneous 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 Endocrine/Metabolic History: Reports: Other (See Below) Other Endocrine/Metabolic History: elevated gtt - Past Surgical History Female Surgical History: Reports: D&C Other Female Surgeries/Procedures: 2 miscarriages Social & Family History - Family History Family Medical History: No Pertinent Family History - Caffeine Use Caffeine Use: Reports: Coffee, Soda ED ROS GENERAL - Review of Systems Review Of Systems: See Below Constitutional: Reports: Fever, Chills, Fatigue, Diaphoresis HEENT: Reports: Ear Pain, Rhinitis, Sinus Problem Respiratory: Reports: Shortness of Breath, Pleuritic Chest Pain, Cough Cardiovascular: Reports: No Symptoms Endocrine: Reports: No Symptoms GI/Abdominal: Reports: Diarrhea, Nausea, Vomiting. Denies: Abdominal Pain : Reports: No Symptoms Musculoskeletal: Reports: Back Pain, Other (Generalized body aches) Skin: Reports: No Symptoms Neurological: Reports: Headache. Denies: Confusion Psychiatric: Reports: Anxiety Hematologic/Lymphatic: Reports: No Symptoms Immunologic: Reports: No Symptoms ED EXAM, GENERAL - Physical Exam Exam: See Below General Appearance: Alert, Moderate Distress Eye Exam: Bilateral Eye: PERRL Ears: Normal External Exam, Other (Left TM injected. Right TM normal) Respiratory/Chest: No Respiratory Distress, Lungs Clear, Normal Breath Sounds, No Accessory Muscle Use, Chest Non-Tender Cardiovascular: Normal Peripheral Pulses, Regular Rate, Rhythm, No Edema, No Gallop, No JVD, No Murmur, No Rub GI/Abdominal: Normal Bowel Sounds, Soft, Non-Tender, No Organomegaly, No Distention, No Abnormal Bruit, No Mass Back Exam: Normal Inspection, Full Range of Motion. No: CVA Tenderness (L), CVA Tenderness (R) Neurological: Alert, Oriented, CN II-XII Intact, Normal Cognition, Normal Gait, Normal Reflexes, No Motor/Sensory Deficits Psychiatric: Anxious, Tearful Skin Exam: Diaphoretic, Increased Warmth, Other (flushed) Course - Vital Signs Last Recorded V/S: Last Vital Signs Temp 99.3 F 06/15/20 14:06 Pulse 72 04/23/21 14:06 Resp 20 06/15/20 14:06 BP 133/88 06/15/20 14:06 Pulse Ox 98 06/15/20 14:06 - Orders/Labs/Meds Labs: Laboratory Tests 06/15/20 06/15/20 Range/Units 11:15 11:15 WBC 7.95 (3.98-10.04) K/mm3 RBC 5.06 (3.98-5.22) M/mm3 Hgb 14.6 (11.2-15.7) gm/dl Hct 44.0 (34.1-44.9) % MCV 87.0 (79.4-94.8) fl MCH 28.9 (25.6-32.2) pg MCHC 33.2 (32.2-35.5) g/dl RDW Std Deviation 41.3 (36.4-46.3) fL Plt Count 237 D (182-369) K/mm3 MPV 10.0 (9.4-12.3) fl Neut % (Auto) 64.5 (34.0-71.1) % Lymph % (Auto) 18.2 L (19.3-51.7) % Holt % (Auto) 16.6 H (4.7-12.5) % Eos % (Auto) 0 L (0.7-5.8) Baso % (Auto) 0.4 (0.1-1.2) % Neut # (Auto) 5.13 (1.56-6.13) K/mm3 Lymph # (Auto) 1.45 (1.18-3.74) K/mm3 Holt # (Auto) 1.32 H (0.24-0.36) K/mm3 Eos # (Auto) 0.00 L (0.04-0.36) K/mm3 Baso # (Auto) 0.03 (0.01-0.08) K/mm3 Manual Slide Review Abnormal smear Sodium 134 L (136-145) mEq/L Potassium 3.9 (3.5-5.1) mEq/L Chloride 98 (98-107) mEq/L Carbon Dioxide 24 (21-32) mEq/L Anion Gap 14.9 (5-15) BUN 11 (7-18) mg/dL Creatinine 1.1 H (0.55-1.02) mg/dL Est Cr Clr Drug Dosing 68.69 mL/min Estimated GFR (MDRD) > 60 (>60) mL/min BUN/Creatinine Ratio 10.0 L (14-18) Glucose 89 (74-106) mg/dL Calcium 9.2 (8.5-10.1) mg/dL Total Bilirubin 0.4 (0.2-1.0) mg/dL AST 27 (15-37) U/L ALT 40 (14-59) U/L Alkaline Phosphatase 56 (46-116) U/L C-Reactive Protein 1.5 H* (<1.0) mg/dL Total Protein 8.1 (6.4-8.2) g/dl Albumin 3.9 (3.4-5.0) g/dl Globulin 4.2 gm/dL Albumin/Globulin Ratio 0.9 L (1-2) Meds: Medications Discontinued Medications Generic Name Dose Route Start Last Admin Trade Name Freq PRN Reason Stop Dose Admin Acetaminophen 975 mg 06/15/20 11:52 06/15/20 12:08 Acetaminophen 325 Mg Tab PO 06/15/20 11:53 975 mg NOW ONE Administration Cefdinir 300 mg 06/15/20 11:47 06/15/20 12:09 Cefdinir 300 Mg Cap PO 06/15/20 11:48 300 mg ONETIME ONE Administration Dexamethasone 4 mg 06/15/20 13:04 06/15/20 13:56 Dexamethasone 4 Mg Tab PO 06/15/20 13:05 4 mg ONETIME ONE Administration Diphenhydramine HCl 50 mg 06/15/20 11:11 06/15/20 11:31 Diphenhydramine 50 Mg/Ml Sdv IVPUSH 06/15/20 11:12 50 mg ONETIME ONE Administration Hydromorphone HCl 0.5 mg 06/15/20 11:43 06/15/20 12:09 Hydromorphone 0.5 Mg/0.5 Ml Syringe IVPUSH 06/15/20 11:44 0.5 mg ONETIME ONE Administration Sodium Chloride 1,000 mls @ 999 mls/hr 06/15/20 11:11 06/15/20 11:32 Normal Saline IV 06/15/20 12:11 999 mls/hr NOW STA Administration Ketorolac Tromethamine 30 mg 06/15/20 11:11 06/15/20 11:32 Ketorolac 30 Mg/Ml Sdv IVPUSH 06/15/20 11:12 30 mg ONETIME ONE Administration Ondansetron HCl 4 mg 06/15/20 11:11 06/15/20 11:32 Ondansetron 4 Mg/2 Ml Sdv IVPUSH 06/15/20 11:12 4 mg ONETIME ONE Administration - Re-Assessments/Exams Free Text/Narrative Re-Assessment/Exam: Patient is a 25-year-old female presenting to the emergency department for treatment with regards to severe body aches, fever, headache, and left ear pain with a known diagnosis of COVID-19. On exam, her left TM is red and injected. Exam is otherwise unremarkable. Neurologic exam is normal. She is warm to the touch.Temperature on triage was 102.6. Vital signs are otherwise stable. I have ordered 1 L bolus of normal saline, Benadryl 50 mg IV, Zofran 4 mg IV, Toradol 30 mg IV, blood work, and chest x-ray. 06/15/20 1155 Work-up is grossly unremarkable. Blood work is normal. Chest x-ray shows no signs of pneumonia. Patient is still having significant discomfort. I have ordered Dilaudid 0.5 mg IV, Tylenol 975 mg p.o., and a first dose of cefdinir for otitis media. Augmentin was not used as she already has abdominal upset and this would likely further her discomfort. 06/15/20 1300 Patient is feeling better. We will discharge her home with prescription for dexamethasone to decrease inflammation within her ears which should improve the pain. Also sent a prescription for cefdinir for otitis media. Discussed with her that she should alternate Tylenol and ibuprofen for the next few days as her body aches are only going to be worsened by the fever. She denied the need for anything for nausea. Discharge instructions as documented. Departure - Departure Time of Disposition: 13:08 Disposition: Home, Self-Care 01 Condition: Good Clinical Impression: COVID-19 Otitis media Qualifiers: Otitis media type: serous Chronicity: acute Laterality: left Recurrence: non- recurrent Qualified Code(s): H65.02 - Acute serous otitis media, left ear - Discharge Information *PRESCRIPTION DRUG MONITORING PROGRAM REVIEWED*: No *COPY OF PRESCRIPTION DRUG MONITORING REPORT IN PATIENT SAMAN: No Prescriptions: Cefdinir 300 mg PO BID #13 capsule dexAMETHasone [Dexamethasone] 4 mg PO BID #9 tab Instructions: COVID-19, Otitis Media, Adult, [id number] Referrals: Agusto Castellanos NP [Primary Care Provider] - Forms: ED Department Discharge Additional Instructions: You were seen in the emergency department today for evaluation with regards to fever, body aches, nausea, ear pain, cough, and shortness of breath with a known diagnosis of COVID-19. Work-up included blood work and chest x-ray. Results of your work were found to be normal. Your left ear was red, therefore we are treating for a ear infection. As we discussed, the weathers to helping your body aches is to keep your fever under control. I would recommend ibuprofen 600 to 800 mg every 6 hours alternating with Tylenol 1000 mg every 6 hours. You been started on dexamethasone which is a steroid. This should help with the pain you are having in your ears. Ensure that you are taking an adequate amount of fluid. If you should experience any new or worsening symptoms of concern, please not hesitate to return to the emergency department. Sepsis Event Note (ED) - Evaluation Sepsis Screening Result: No Definite Risk - Focused Exam Vital Signs: Vital Signs Temp Temp Pulse Resp BP Pulse Ox 06/15/20 14:06 99.3 F 72 20 133/88 98 06/15/20 12:08 101.5 F H 06/15/20 10:54 102.6 F H 99 20 117/78 98
[2020-06-15] MEDS ORDERED: HYDROmorphone 0.5 MG/0.5 ML Syringe IVPUSH ONE (11:43)
[2020-06-15] MEDS ORDERED: Cefdinir 300 MG Cap PO ONE (11:47)
[2020-06-15] MEDS ORDERED: Acetaminophen 325 MG Tab PO ONE (11:52)
--- NOTE | 2020-06-15 12:49 | CR ---
Chest: Portable view of the chest was obtained. Comparison: Prior chest x-ray of 12/09/17. Heart size and mediastinum are normal. Lungs are clear with no acute parenchymal change. Bony structures show nothing acute. Impression: 1. Nothing acute is seen on portable chest x-ray. 2. No change from previous chest x-ray is seen. Diagnostic code #1
[2020-06-15] MEDS ORDERED: Dexamethasone 4 MG Tab PO ONE (13:04)
== END 2020-06-15 14:06 | disposition home or self-care (01) ==
LOC: JD.ED 10:41
DX: U07.1 COVID-19 (principal); H65.02 Acute serous otitis media, left ear
CPT/HCPCS: 36415; 71045; 80053; 85025; 86140; 96374; 96375; 99283; A9270; J1170; J1200; J1885; J2405; J7030; J8540; 99284

== ENCOUNTER 2020-07-02 09:35 | Emergency (ER) | payer MEDICAID ==
[2020-07-02] MEDS ORDERED: Sodium Chloride 0.9% 10 ML Syringe FLUSH PRN ×2 (10:00→10:32)
[2020-07-02] MEDS ORDERED: Ondansetron 4 MG/2 ML SDV IVPUSH ONE (10:00)
[2020-07-02] MEDS ORDERED: Sodium Chloride 0.9% 1,000 ML IV STA (10:00)
[2020-07-02] MEDS ORDERED: HYDROmorphone 1 MG/ML Syringe IVPUSH ONE ×2 (10:02→10:44)
[2020-07-02] MEDS ORDERED: Iopamidol 612 MG/ML 100 ML Bottle IVPUSH ONE (10:32)
[2020-07-02] MEDS ORDERED: Diatrizoate Meglumine/Diatrizoate Sodium 37% 120 ML Bottle PO ONE (10:32)
--- NOTE | 2020-07-02 11:25 | EDM.PDOC ---
ED HPI GENERAL MEDICAL PROBLEM - General Chief Complaint: Abdominal Pain Stated Complaint: ABDOMINAL PAIN/VOMITING Time Seen by Provider: 07/02/20 09:41 Source of Information: Reports: Patient History Limitations: Reports: No Limitations - History of Present Illness INITIAL COMMENTS - FREE TEXT/NARRATIVE: The patient presents with abdominal pain, nausea and vomiting. This started at 5am. The patient says 3 weeks ago she was diagnosed with COVID 19. She had similar symptoms such as abdominal pain, nausea, vomiting, chest pain and diarrhea but it was not this bad. She says the abdominal pain is constant but it will get worse in waves and it goes to her back and into her chest. She has some shortness of breath with it. She has diarrhea with it. She has no fever, chills, or cough. She has no health problems. She does smoke. Onset: Sudden Duration: Hour(s): Location: Reports: Chest, Abdomen, Back Quality: Reports: Sharp Severity: Severe Improves with: Reports: None Worsens with: Reports: None Associated Symptoms: Reports: Chest Pain, Nausea/Vomiting, Shortness of Breath. Denies: Cough, Fever/Chills, Headaches Left Lower Abdomen Pain Score (Numeric/FACES): 8 - Related Data Allergies Allergy/AdvReac Type Severity Reaction Status Date / Time No Known Allergies Allergy Verified 07/02/20 09:44 Home Meds: Home Meds Hydrocodone/Acetaminophen [Hydrocodone-Acetamin 5-325 mg] 1 - 2 each PO Q6H PRN #20 tablet 07/02/20 [Rx] Ondansetron [Zofran ODT] 4 mg PO Q6H PRN #20 tab.dis 07/02/20 [Rx] Past Medical History - Past Health History Medical/Surgical History: Denies Medical/Surgical History Gastrointestinal History: Reports: Other (See Below) Other Gastrointestinal History: constipation Genitourinary History: Reports: STD, Other (See Below) Other Genitourinary History: history of chlamydia PRO[employer]S 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 Endocrine/Metabolic History: Reports: Other (See Below) Other Endocrine/Metabolic History: elevated gtt - Infectious Disease History Infectious Disease History: Reports: Novel Coronavirus - Past Surgical History Female Surgical History: Reports: D&C Other Female Surgeries/Procedures: 2 miscarriages Social & Family History - Family History Family Medical History: No Pertinent Family History - Tobacco Use Tobacco Use Status *Q: Current Every Day Tobacco User Years of Tobacco use: 5 Packs/Tins Daily: 0.5 - Caffeine Use Caffeine Use: Reports: Coffee, Soda - Recreational Drug Use Recreational Drug Use: No ED ROS GENERAL - Review of Systems Review Of Systems: See Below Constitutional: Reports: No Symptoms HEENT: Reports: No Symptoms Respiratory: Reports: Shortness of Breath. Denies: Cough Cardiovascular: Reports: Chest Pain Endocrine: Reports: No Symptoms GI/Abdominal: Reports: Abdominal Pain, Diarrhea, Nausea, Vomiting : Reports: No Symptoms Musculoskeletal: Reports: Back Pain Skin: Reports: No Symptoms Neurological: Reports: No Symptoms ED EXAM, GI/ABD - Physical Exam Exam: See Below Exam Limited By: No Limitations General Appearance: Alert, Moderate Distress Ears: Normal External Exam Nose: Normal Inspection Head: Atraumatic, Normocephalic Neck: Normal Inspection Respiratory/Chest: No Respiratory Distress, Lungs Clear, Normal Breath Sounds Cardiovascular: Regular Rate, Rhythm, No Edema, No Murmur GI/Abdominal Exam: Soft, No Organomegaly, No Mass, Tender (Moderate generalized abdominal pain) Back Exam: Normal Inspection Extremities: Normal Inspection #1 Interpretation EKG Date: 07/02/20 Time: 11:18 Rhythm: NSR Rate (Beats/Min): 79 [place]: Normal P-Wave: Present QRS: Normal ST-T: Normal QT: Normal Course - Vital Signs Last Recorded V/S: Last Vital Signs Temp 100.5 F 07/02/20 12:45 Pulse 108 H 07/02/20 13:30 Resp 16 07/02/20 13:30 BP 106/73 07/02/20 13:30 Pulse Ox 99 07/02/20 13:30 - Orders/Labs/Meds Orders: Active Orders 24 hr Category Date Time Status EKG Documentation Completion [RC] ASDIRECTED Care 07/02/20 10:41 Active Peripheral IV Care [RC] . DIRECTED Care 07/02/20 10:00 Active Sodium Chloride 0.9% [Saline Flush] Med 07/02/20 10:00 Active 10 ml FLUSH ASDIRECTED PRN Sodium Chloride 0.9% [Saline Flush] Med 07/02/20 10:32 Active 10 ml FLUSH ONETIME PRN ED Antiemetic Medication Reflex [OM.PC] Stat Oth 07/02/20 10:00 Ordered Peripheral IV Insertion Adult [OM.PC] Stat Oth 07/02/20 10:00 Ordered EKG 12 Lead [EK] Stat Ther 07/02/20 10:41 Ordered Medication Orders Sodium Chloride (Sodium Chloride 0.9% 10 Ml Syringe) 10 ml FLUSH ASDIRECTED PRN PRN Reason: Keep Vein Open Last Admin: 07/02/20 10:12 Dose: 10 ml Documented by: ED Sodium Chloride (Sodium Chloride 0.9% 10 Ml Syringe) 10 ml FLUSH ONETIME PRN PRN Reason: IV FLUSH Last Admin: 07/02/20 11:51 Dose: 10 ml Documented by: DONNA Labs: Laboratory Tests 07/02/20 07/02/20 07/02/20 Range/Units 09:50 09:50 09:50 WBC 12.48 H (3.98-10.04) K/mm3 RBC 5.06 (3.98-5.22) M/mm3 Hgb 14.5 (11.2-15.7) gm/dl Hct 43.7 (34.1-44.9) % MCV 86.4 (79.4-94.8) fl MCH 28.7 (25.6-32.2) pg MCHC 33.2 (32.2-35.5) g/dl RDW Std Deviation 40.4 (36.4-46.3) fL Plt Count 353 D (182-369) K/mm3 MPV 9.5 (9.4-12.3) fl Neut % (Auto) 88.2 H (34.0-71.1) % Lymph % (Auto) 6.4 L (19.3-51.7) % [place] % (Auto) 4.7 (4.7-12.5) % Eos % (Auto) 0.4 L (0.7-5.8) Baso % (Auto) 0.1 (0.1-1.2) % Neut # (Auto) 11.01 H (1.56-6.13) K/mm3 Lymph # (Auto) 0.80 L (1.18-3.74) K/mm3 [place] # (Auto) 0.59 H (0.24-0.36) K/mm3 Eos # (Auto) 0.05 (0.04-0.36) K/mm3 Baso # (Auto) 0.01 (0.01-0.08) K/mm3 Manual Slide Review Abnormal smear PT 11.0 (9.7-12.0) SECONDS INR 1.03 APTT 25.6 (21.7-31.4) SECONDS D-Dimer, Quantitative 0.32 (0.19-0.50) mg/L Sodium 138 (136-145) mEq/L Potassium 4.1 (3.5-5.1) mEq/L Chloride 101 (98-107) mEq/L Carbon Dioxide 24 (21-32) mEq/L Anion Gap 17.1 H (5-15) BUN 15 (7-18) mg/dL Creatinine 0.9 (0.55-1.02) mg/dL Est Cr Clr Drug Dosing 83.95 mL/min Estimated GFR (MDRD) > 60 (>60) mL/min BUN/Creatinine Ratio 16.7 (14-18) Glucose 92 (74-106) mg/dL Calcium 8.8 (8.5-10.1) mg/dL Total Bilirubin 1.6 H (0.2-1.0) mg/dL AST 14 L (15-37) U/L ALT 27 (14-59) U/L Alkaline Phosphatase 69 (46-116) U/L Troponin I < 0.017 (0.00-0.056) ng/mL Total Protein 8.1 (6.4-8.2) g/dl Albumin 4.0 (3.4-5.0) g/dl Globulin 4.1 gm/dL Albumin/Globulin Ratio 1.0 (1-2) Lipase 82 (73-393) U/L HCG, Qual (NEGATIVE) Urine Color (Yellow) Urine Appearance (Clear) Urine pH (5.0-8.0) Ur Specific [place] (1.005-1.030) Urine Protein (Negative) Urine Glucose (UA) (Negative) Urine Ketones (Negative) Urine Occult Blood (Negative) Urine Nitrite (Negative) Urine Bilirubin (Negative) Urine Urobilinogen (0.2-1.0) Ur Leukocyte Esterase (Negative) Urine RBC (0-5) /hpf Urine WBC (0-5) /hpf Ur Epithelial Cells (0-5) /hpf Urine Bacteria (FEW) /hpf Urine Mucus (FEW) /hpf 07/02/20 07/02/20 Range/Units 09:50 10:20 WBC (3.98-10.04) K/mm3 RBC (3.98-5.22) M/mm3 Hgb (11.2-15.7) gm/dl Hct (34.1-44.9) % MCV (79.4-94.8) fl MCH (25.6-32.2) pg MCHC (32.2-35.5) g/dl RDW Std Deviation (36.4-46.3) fL Plt Count (182-369) K/mm3 MPV (9.4-12.3) fl Neut % (Auto) (34.0-71.1) % Lymph % (Auto) (19.3-51.7) % [place] % (Auto) (4.7-12.5) % Eos % (Auto) (0.7-5.8) Baso % (Auto) (0.1-1.2) % Neut # (Auto) (1.56-6.13) K/mm3 Lymph # (Auto) (1.18-3.74) K/mm3 [place] # (Auto) (0.24-0.36) K/mm3 Eos # (Auto) (0.04-0.36) K/mm3 Baso # (Auto) (0.01-0.08) K/mm3 Manual Slide Review PT (9.7-12.0) SECONDS INR APTT (21.7-31.4) SECONDS D-Dimer, Quantitative (0.19-0.50) mg/L Sodium (136-145) mEq/L Potassium (3.5-5.1) mEq/L Chloride (98-107) mEq/L Carbon Dioxide (21-32) mEq/L Anion Gap (5-15) BUN (7-18) mg/dL Creatinine (0.55-1.02) mg/dL Est Cr Clr Drug Dosing mL/min Estimated GFR (MDRD) (>60) mL/min BUN/Creatinine Ratio (14-18) Glucose (74-106) mg/dL Calcium (8.5-10.1) mg/dL Total Bilirubin (0.2-1.0) mg/dL AST (15-37) U/L ALT (14-59) U/L Alkaline Phosphatase (46-116) U/L Troponin I (0.00-0.056) ng/mL Total Protein (6.4-8.2) g/dl Albumin (3.4-5.0) g/dl Globulin gm/dL Albumin/Globulin Ratio (1-2) Lipase (73-393) U/L HCG, Qual Negative (NEGATIVE) Urine Color Yellow (Yellow) Urine Appearance Clear (Clear) Urine pH 7.0 (5.0-8.0) Ur Specific [place] 1.025 (1.005-1.030) Urine Protein Negative (Negative) Urine Glucose (UA) Negative (Negative) Urine Ketones Negative (Negative) Urine Occult Blood Negative (Negative) Urine Nitrite Negative (Negative) Urine Bilirubin Negative (Negative) Urine Urobilinogen 0.2 (0.2-1.0) Ur Leukocyte Esterase Negative (Negative) Urine RBC 0-5 (0-5) /hpf Urine WBC 0-5 (0-5) /hpf Ur Epithelial Cells 10-20 H (0-5) /hpf Urine Bacteria Rare (FEW) /hpf Urine Mucus Few (FEW) /hpf Meds: Medications Generic Name Dose Route Start Last Admin Trade Name Javier PRN Reason Stop Dose Admin Sodium Chloride 10 ml 07/02/20 10:00 07/02/20 10:12 Sodium Chloride 0.9% 10 Ml Syringe FLUSH 10 ml ASDIRECTED PRN Administration Keep Vein Open Sodium Chloride 10 ml 07/02/20 10:32 07/02/20 11:51 Sodium Chloride 0.9% 10 Ml Syringe FLUSH 10 ml ONETIME PRN Administration IV FLUSH Discontinued Medications Generic Name Dose Route Start Last Admin Trade Name Freq PRN Reason Stop Dose Admin Diatrizoate Meglum/Diatrizoate Sod 120 ml 07/02/20 10:32 07/02/20 11:51 Diatrizoate Meglumine/Diatrizoate Sodium 37% 120 Ml Bottle PO 07/02/20 10:33 30 ml ONETIME ONE Administration Hydromorphone HCl 1 mg 07/02/20 10:02 07/02/20 10:11 Hydromorphone 1 Mg/Ml Syringe IVPUSH 07/02/20 10:03 1 mg ONETIME ONE Administration Hydromorphone HCl 1 mg 07/02/20 10:44 07/02/20 10:50 Hydromorphone 1 Mg/Ml Syringe IVPUSH 07/02/20 10:45 1 mg ONETIME ONE Administration Sodium Chloride 1,000 mls @ 1,000 mls/hr 07/02/20 10:00 07/02/20 10:10 Normal Saline IV 07/02/20 10:59 1,000 mls/hr .BOLUS STA Administration Iopamidol 100 ml 07/02/20 10:32 07/02/20 11:51 Iopamidol 612 Mg/Ml 100 Ml Bottle IVPUSH 07/02/20 10:33 100 ml ONETIME ONE Administration Ketorolac Tromethamine 30 mg 07/02/20 12:45 07/02/20 12:58 Ketorolac 30 Mg/Ml Sdv IVPUSH 07/02/20 12:46 30 mg ONETIME ONE Administration Lorazepam 1 mg 07/02/20 12:30 07/02/20 12:36 Lorazepam 2 Mg/Ml Sdv IVPUSH 07/02/20 12:31 1 mg ONETIME ONE Administration Ondansetron HCl 4 mg 07/02/20 10:00 07/02/20 10:11 Ondansetron 4 Mg/2 Ml Sdv IVPUSH 07/02/20 10:01 4 mg ONETIME ONE Administration - Re-Assessments/Exams Free Text/Narrative Re-Assessment/Exam: 07/02/20 11:20 I ordered an IV NS 1L bolus, zofran 4mg IV, dilaudid 1mg IV, labs, UA, CXR, CT of the abdomen and pelvis with IV and oral contrast. Her WBC was elevated at 12.48. Her PT and PTT are normal. Her anion gap is elevated at 17.1. Her total bili is elevated at 1.6. Her troponin is negative. Her lipase is normal. Her HCG is negative. Her EKG shows a NSR with no acute changes. Her CXR looks good. 07/02/20 12:[address] shows nothing acute. She still had more pain. I gave her another dose of dilaudid and tried some ativan 1mg IV. That did help some. I ordered some toradol 30mg IV. 07/02/20 13:47 The toradol did help more. I will discharge her home with something for pain and nausea. Departure - Departure Time of Disposition: 13:50 Disposition: Home, Self-Care 01 Condition: Good Clinical Impression: Post-COVID syndrome Back pain Qualifiers: Back pain location: low back pain Chronicity: acute Back pain laterality: bilateral Sciatica presence: without sciatica Qualified Code(s): M54.5 - Low back pain Nausea and vomiting Qualifiers: Vomiting type: unspecified Vomiting Intractability: non-intractable Qualified Code(s): R11.2 - Nausea with vomiting, unspecified Abdominal pain Qualifiers: Abdominal location: right upper quadrant Qualified Code(s): R10.11 - Right upper quadrant pain - Discharge Information *PRESCRIPTION DRUG MONITORING PROGRAM REVIEWED*: Not Applicable *COPY OF PRESCRIPTION DRUG MONITORING REPORT IN PATIENT SAMAN: Not Applicable Prescriptions: Hydrocodone/Acetaminophen [Hydrocodone-Acetamin 5-325 mg] 1 - 2 each PO Q6H PRN #20 tablet PRN Reason: Pain Ondansetron [Zofran ODT] 4 mg PO Q6H PRN #20 tab.dis PRN Reason: Nausea\vomiting Referrals: Agusto Castellanos [facility]KER [Primary Care Provider] - 1 Week Forms: ED Department Discharge, ED Return to Work/School Form Additional Instructions: Drink plenty of fluids. Take tylenol or motrin as needed for pain. If that does not help, try the hydrocodone. Take zofran every 6 hours as needed for nausea and vomiting. Please return if you are worse. Sepsis Event Note (ED) - Evaluation Sepsis Screening Result: No Definite Risk - Focused Exam Vital Signs: Vital Signs Temp Pulse Resp BP Pulse Ox 07/02/20 13:30 108 H 16 106/73 99 07/02/20 12:45 100.5 F 115 H 16 115/75 100 07/02/20 09:40 97.9 F 93 18 122/100 H 99 - My Orders Last 24 Hours: My Active Orders 07/02/20 10:00 Peripheral IV Care [RC] . DIRECTED Sodium Chloride 0.9% [Saline Flush] 10 ml FLUSH ASDIRECTED PRN ED Antiemetic Medication Reflex [OM.PC] Stat Peripheral IV Insertion Adult [OM.PC] Stat 07/02/20 10:32 Sodium Chloride 0.9% [Saline Flush] 10 ml FLUSH ONETIME PRN 07/02/20 10:41 EKG Documentation Completion [RC] ASDIRECTED EKG 12 Lead [EK] Stat - Assessment/Plan Last 24 Hours: My Active Orders 07/02/20 10:00 Peripheral IV Care [RC] . DIRECTED Sodium Chloride 0.9% [Saline Flush] 10 ml FLUSH ASDIRECTED PRN ED Antiemetic Medication Reflex [OM.PC] Stat Peripheral IV Insertion Adult [OM.PC] Stat 07/02/20 10:32 Sodium Chloride 0.9% [Saline Flush] 10 ml FLUSH ONETIME PRN 07/02/20 10:41 EKG Documentation Completion [RC] ASDIRECTED EKG 12 Lead [EK] Stat
--- NOTE | 2020-07-02 11:40 | CR ---
Chest: Portable view of the chest was obtained. Comparison: Previous chest x-ray of 06/15/20. Heart size and mediastinum are within normal limits. Lungs are clear with no acute parenchymal change. Slight scoliosis is noted within the spine. Impression: 1. Nothing acute is appreciated on portable chest x-ray. Diagnostic code #2
--- NOTE | 2020-07-02 12:19 | CT ---
CT abdomen and pelvis Technique: Multiple axial sections were obtained from above the dome of the diaphragm inferiorly through the pubic symphysis. Intravenous and oral contrast was utilized. Reconstructed coronal and sagittal images were also obtained. Comparison: Prior CT abdomen and pelvis exam of 10/29/19. Findings: Visualized lung bases show nothing acute. Liver shows no focal abnormality. Spleen is within normal limits. Adrenal glands show no nodule. Pancreas shows no discrete abnormality. Gallbladder contains no calcified gallstones. Kidneys show symmetric contrast enhancement. No hydronephrosis or mass is seen. Abdominal aorta shows no aneurysm. No retroperitoneal adenopathy or mesenteric abnormalities are seen. No pelvic mass or adenopathy is appreciated. Appendix is not definitely visualized. Bone window settings were reviewed which appear within normal limits for the patient's age. Impression: 1. Nothing acute is identified on CT study of the abdomen and pelvis. Diagnostic code #1
[2020-07-02] MEDS ORDERED: LORazepam 2 MG/ML SDV IVPUSH ONE (12:30)
[2020-07-02] MEDS ORDERED: Ketorolac 30 MG/ML SDV IVPUSH ONE (12:45)
== END 2020-07-02 14:20 | disposition home or self-care (01) ==
LOC: JD.ED 09:35
DX: R10.11 Right upper quadrant pain (principal); M54.5 Low back pain; R11.2 Nausea with vomiting, unspecified; R19.7 Diarrhea, unspecified; R07.9 Chest pain, unspecified; R06.02 Shortness of breath; R10.32 Left lower quadrant pain; R10.84 Generalized abdominal pain; D72.829 Elevated white blood cell count, unspecified; F17.210 Nicotine dependence, cigarettes, uncomplicated; Z86.16 Personal history of COVID-19
CPT/HCPCS: 36415; 71045; 74177; 80053; 81001; 83690; 84484; 84703; 85025; 85379; 85610; 85730; 93005; 96374; 96375; 96376; 99285; J1170; J1885; J2060; J2405; J7030; Q9963; Q9967; 93010; 99284

== ENCOUNTER 2020-11-21 12:50 | Emergency (ER) | payer MEDICAID ==
[2020-11-21] MEDS ORDERED: Sodium Chloride 0.9% 10 ML Syringe FLUSH PRN ×2 (13:17→13:30)
[2020-11-21] MEDS ORDERED: HYDROmorphone 1 MG/ML Syringe IVPUSH ONE ×2 (13:19→14:49)
[2020-11-21] MEDS ORDERED: Iopamidol 612 MG/ML 50 ML SDV IVPUSH ONE (13:30)
[2020-11-21] MEDS ORDERED: Iopamidol 612 MG/ML 100 ML Bottle IVPUSH ONE (13:30)
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
--- NOTE | 2020-11-21 14:59 | CT ---
CT chest Technique: Multiple axial sections were obtained from above the lung apices inferiorly through the lung bases. Intravenous contrast was utilized. Reconstructed coronal and sagittal images were obtained. Comparison: No prior chest CT is available, prior chest x-ray of 07/02/20. Findings: Thoracic aorta shows no aneurysm. Mediastinum and hilar regions show no adenopathy. Minimal thymic tissue is noted within the superior mediastinum. No axillary adenopathy is seen. No pericardial thickening is seen. Lung window settings were reviewed. Lung parenchyma show no acute parenchymal change. No pleural effusions or pneumothorax is seen. Bone window settings were reviewed. No acute osseous abnormality is appreciated. Impression: 1. No abnormality is identified on CT study of the chest. Diagnostic code #1 CT abdomen and pelvis Technique: Multiple axial sections were obtained from above the dome of the diaphragm inferiorly through the pubic symphysis. Intravenous contrast was utilized. Delayed images were obtained through the bladder. No oral contrast has been given. Reconstructed coronal and sagittal images were obtained. Comparison: Prior CT abdomen and pelvis study of 07/02/20. Findings: Liver contains no focal abnormality. Gallbladder contains no calcified gallstones. Spleen size is normal. Adrenal glands show no nodule. Pancreas shows no abnormality. Kidneys show symmetric contrast enhancement without hydronephrosis or mass. Delayed images show contrast within the distal ureters and within the bladder. Abdominal aorta shows no aneurysm. Normal enhancing branch vessels are seen off the aorta. No retroperitoneal adenopathy is seen. No mesenteric abnormalities are seen. Appendix is seen which is normal in size. Minimal free fluid is seen within the dependent pelvis which is felt to be physiologic. No pelvic mass or adenopathy is seen. No adnexal abnormalities are seen. No bowel dilatation is seen. Bone window settings were reviewed which appear within normal limits for the patient's age. Impression: 1. Nothing acute is seen on CT study of the abdomen and pelvis. Diagnostic code #1
[2020-11-21] MEDS ORDERED: HYDROmorphone 0.5 MG/0.5 ML Syringe IVPUSH ONE (16:11)
== END 2020-11-21 16:40 | disposition home or self-care (01) ==
LOC: JD.ED 12:50
DX: S39.012A Strain of muscle, fascia and tendon of lower back, initial encounter (principal); N30.00 Acute cystitis without hematuria; Z86.16 Personal history of COVID-19; V86.56XA Driver of dirt bike or motor/cross bike injured in nontraffic accident, initial encounter; Y92.820 Desert as the place of occurrence of the external cause
CPT/HCPCS: 36415; 71260; 74177; 80053; 81001; 83690; 84703; 85025; 85610; 85730; 96374; 96376; 99284; J1170; Q9967